=== PATIENT | male | born 1940 | race Caucasian/White ===

== ENCOUNTER 2020-03-10 21:18 | Inpatient (IN) | payer OTHER, MEDICARE ==
[~2020-03-10] VITALS: Ht 175.3 cm; Wt 85.0 kg
[2020-03-10 21:58] LABS: BASOPHILS ABSOLUTE AUTO 0.04 K/mm3 (0.00-0.23); BASOPHILS PERCENT AUTO 0 % (0-2); EOSINOPHILS ABSOLUTE AUTO 0.02 K/mm3 (0.00-0.68); EOSINOPHILS PERCENT AUTO 0 % (0-6); Hematocrit 42.9 % (37.0-53.0); Hemoglobin 13.8 g/dL (13.5-17.5); IMMATURE GRAN ABSOLUTE AUTO 0.05 K/mm3 (0.00-0.10); IMMATURE GRAN PERCENT AUTO 0 % (0-1); LYMPHOCYTES ABSOLUTE AUTO 0.48 K/mm3 (0.84-5.20); LYMPHOCYTES PERCENT AUTO 4 % (21-46); MONOCYTES PERCENT AUTO 4 % (4-13); Mean Corpuscular HGB 28.9 pg (26.0-34.0); Mean Corpuscular HGB Conc 32.2 g/dL (31.5-36.5); Mean Corpuscular Volume 90 fL (80-100); NEUTROPHILS ABSOLUTE AUTO 10.32 K/mm3 (1.96-9.15); NEUTROPHILS PERCENT AUTO 91 % (41-73); Platelet Count 220 K/mm3 (150-400); RDW Coefficient Variation 12.6 % (11.7-14.2); RDW Standard Deviation 41.4 fL (35.1-46.3); Red Blood Cell Count 4.77 M/mm3 (4.30-5.90); White Blood Cell Count 11.31 K/mm3 (4.00-11.30)
[2020-03-10] MEDS ORDERED: METF500 PO (22:04)
[2020-03-10 22:05] LABS: Alanine Aminotransfer (ALT/SGP 26 U/L (12-78); Albumin, Blood 3.2 g/dL (3.4-5.0); Albumin/Globulin Ratio 0.8 (0.8-1.8); Alk Phos 56 U/L (50-136); Anion Gap 5 mmol/L (6-16); Aspartate Aminotrans (AST/SGOT 27 U/L (12-37); Bilirubin, Total 0.3 mg/dL (0.1-1.0); Blood Urea Nitrogen 24 mg/dL (8-24); CO2, Blood 30 mmol/L (21-32); Calcium, Blood 8.6 mg/dL (8.5-10.1); Chloride, Blood 105 mmol/L (98-108); Globulin, Blood 3.8 g/dL (2.2-4.0); Glomerular Filtration Rate >60 (60-); Glucose, Blood 269 mg/dL (70-99); Potassium, Blood 3.9 mmol/L (3.5-5.5); Sodium, Blood 140 mmol/L (136-145); Troponin I 0.199 ng/mL (0.000-0.040)
[2020-03-10 23:06] LABS: Influenza A, PCR Negative (NEGATIVE); Influenza B, PCR Negative (NEGATIVE); Resp Syncytial Virus, PCR Negative (NEGATIVE); SARS-Cov-2 (COVID-19) PCR, MMC Negative (NEGATIVE)
--- NOTE | 2020-03-10 23:41 | NUR ---
PATIENT ARRIVED TO ICU 3 VIA BED FROM ASSOCIATE CURATOR POST PCI FOR STEMI. PATIENT AWAKE, MASHPEE. UP TO TOILET WITH 1 PERSON ASSIST CHRISTOPHER WELL. SCROTUM VERY SWOLLEN PATIENT VERBALIZED THAT HE HAS A HERNIA THAT WAS PARTIALLY REPAIRED. VOIDING SMALL AMT OF HAZY URINE WHEN UP TO TOILET. TR BAND IN PLACE TO RIGHT WRIST. STENT CARD PLACED IN PATIENTS WALLET. PATIENT ABLE TO ANSWER ADMIT QUESTIONS WITHOUT DIFFICULTY.
--- NOTE | 2020-03-11 03:38 | NUR ---
PATIENT UP TO TOILET AT 0240 VOIDING SMALL AMT OF HAZY YELLOW URINE. ON WAY BACK TO BED BECOMING SOB WITH AUDIBLE WHEEZES. AFTER RESTING CONTINUES TO FEEL SOB AND BECOMING VERY RESTLESS. FEELING IF HE NEEDS TO VOID AGAIN. COOK CATH PLACED DRAINING CLOUDY YELLOW URINE, EXPIRATORY WHEEZES CONTINUE.
[2020-03-11 03:39] LABS: Source, Urine Catheter
[2020-03-11 03:48] LABS: Bilirubin, Urine Neg (Neg); Blood, Urine 3+ (Neg); Glucose Qualitative, Urine 4+ (Neg); Ketones, Urine 2+ (Neg); Leukocyte Esterase, Urine Neg (Neg); Nitrite, Urine Neg (Neg); Protein, Urine 3+ (Neg); Urobilinogen, Urine 1+ (Normal)
[2020-03-11 03:49] LABS: Appearance, Urine Clear (Clear); Color, Urine Yellow (P-Yellow)
[2020-03-11 03:50] LABS: Bacteria Few /hpf; Squamous Epithelial Cells Not Seen /hpf (Few); White Blood Cells, Urine 0-2 /hpf (0-5)
--- NOTE | 2020-03-11 04:02 | NUR ---
CALL PLACED TO DOCTOR ATHAR PATIENT CONTINUES TO FEEL SOB, SKIN COLD AND DIAPHORETIC. REPEAT EKG DONE AND COPY SENT WITH PREVIOUS EKG
[2020-03-11 04:46] LABS: BASOPHILS ABSOLUTE AUTO 0.06 K/mm3 (0.00-0.23); BASOPHILS PERCENT AUTO 0 % (0-2); EOSINOPHILS ABSOLUTE AUTO 0.03 K/mm3 (0.00-0.68); EOSINOPHILS PERCENT AUTO 0 % (0-6); Hematocrit 47.4 % (37.0-53.0); Hemoglobin 15.1 g/dL (13.5-17.5); IMMATURE GRAN ABSOLUTE AUTO 0.16 K/mm3 (0.00-0.10); IMMATURE GRAN PERCENT AUTO 1 % (0-1); LYMPHOCYTES ABSOLUTE AUTO 2.48 K/mm3 (0.84-5.20); LYMPHOCYTES PERCENT AUTO 14 % (21-46); MONOCYTES ABSOLUTE AUTO 0.96 K/mm3 (0.16-1.47); MONOCYTES PERCENT AUTO 6 % (4-13); Mean Corpuscular HGB 29.3 pg (26.0-34.0); Mean Corpuscular HGB Conc 31.9 g/dL (31.5-36.5); Mean Corpuscular Volume 92 fL (80-100); Mean Platelet Volume 9.2 fL (9.1-12.4); NEUTROPHILS ABSOLUTE AUTO 13.55 K/mm3 (1.96-9.15); NEUTROPHILS PERCENT AUTO 79 % (41-73); Platelet Count 289 K/mm3 (150-400); RDW Coefficient Variation 12.6 % (11.7-14.2); RDW Standard Deviation 42.4 fL (35.1-46.3); Red Blood Cell Count 5.16 M/mm3 (4.30-5.90); White Blood Cell Count 17.24 K/mm3 (4.00-11.30)
[2020-03-11 04:51] LABS: PCO2 Arterial 59.5 mmHg (35-45); PO2 Arterial 114 mmHg (80-100)
[2020-03-11 04:53] LABS: pH Blood Arterial 7.21 (7.35-7.45)
[2020-03-11 04:57] LABS: Anion Gap 9 mmol/L (6-16); Blood Urea Nitrogen 22 mg/dL (8-24); Bun/Creatinine Ratio 38.6 (12.0-20.0); CO2, Blood 25 mmol/L (21-32); Calcium, Blood 8.3 mg/dL (8.5-10.1); Chloride, Blood 105 mmol/L (98-108); Creatinine, Blood 0.57 mg/dL (0.60-1.20); Glomerular Filtration Rate >60 (60-); Glucose, Blood 414 mg/dL (70-99); Magnesium, Blood 2.4 mg/dL (1.6-2.4); Phosphorus, Blood 3.9 mg/dL (2.5-4.9); Potassium, Blood 3.6 mmol/L (3.5-5.5); Sodium, Blood 139 mmol/L (136-145)
[2020-03-11 05:02] LABS: International Normalized Ratio 1.02; Prothrombin Time Results 10.9 Sec (9.7-11.5)
--- NOTE | 2020-03-11 06:34 | NUR ---
SUMMARY AT 0240 PATIENT UP TO TOILET TO VOID, WHEN AMB BACK TO BED BECOMING SOB WITH WHEEZES. COOK CATH PLACED, TO HELP DRAIN URINE DUE TO SWELLING TO SCROTUM AND PASSABLE URINE RETENTION. PATIENT CONTINUED TO BE SOB AND BECOMING RESTLESS, HILLMAN IN COLOR AND DIAPHORETIC . AT 0418 BECOMING LETHARGIC WITH AGONAL BREATHING CODE BLUE CALLED AND PATIENT INTUBATED WITH NO LOSS OF PRESSURE OR NEED FOR COMPRESSIONS. PROPOFOL STARTED FOR SEDATION AND PATIENT WENT TO CT. TR BAND REMAINS TO RIGHT WRIST ABLE TO DECREASE PRESSURE DOWN BY 8 CC. PATIENT NOW OPENS EYES TO SLIGHT STIMULI, NODDING YES AND NO TO SIMPLE QUESTIONS. VENT AC 18, TV 550, PEEP 8, FIO2 65%. LUNG SOUNDS COARSE TO RIGHT UPPER LOBE AND VERY DECREASED TO RIGHT MID TO LOWER LOBE, CLEAR TO LEFT UPPER FINE CRACKLES TO LEFT LOWER LOBE.
--- NOTE | 2020-03-11 08:38 | NUR ---
Contact established with patient's step-brother Shubham Dina to confirm the patient's medical wishes. Shubham verifies that the patient would not want non-beneficial heroic measures or manager intermediate life support therapies if they would be clinically futile. Faxed [place] to request the patient's advance directive to assure this testimony aligns with any documented preferences that may be on file.
--- NOTE | 2020-03-11 08:46 | NUR ---
PT WAS NOTED TO HAVE SBP 50'S AT 0745. PROPOFOL DOWN TO 15MCG/KG/MIN, CALL TO DR. CISNEROS, ORDERS FOR BOLUS NS 1000CC, PICC LINE. CT RESULTS TO MD @0751. 0800 DR. SILVESTRE CALLED 0801 NS BOLUS STARTED, IV INFILTRATED, ECHO DONE, I/O ACCESS AT 0816, RESUMED NS BOLUS. DR. CISNEROS WAS CALLED FOR PRESSORS, LEVO @ 20MCG/MIN @0825, PROPOFOL TO 15MCG/KG/MIN. PT WAS RESPONDING DURING THIS, WITH HEAD NODS, TUGGING AT RESTRAINTS, MOVING ALL EXTREM SPONTANEOUSLY. SBP STILL TRENDING LOW, INCREASED LEVOPHED TO 30, REQUESTED VASOPRESSIN. CHHAYA NOTED @0831, ATROPINE 0.5MG GIVEN. CONTACTED PASTORAL CARE TO ASSIST WITH CONTACT OF FAMILY AND ADVANCED DIRECTIVES RE[facility] FROM [facility]. 0835 VASO DECREASED, LEVO @ 20. 0842, CRITICAL LAB lACTIC ACID 3.1, SLIGHTLY IMPROVED. 0843 LEVO TO 15, 0845 LEVO TO 10, DR. CISNEROS HERE AT BEDSIDE, REPORT GIVEN. ORDER FOR DOBUTAMINE RECEIVED TO START AT 2.5 MCG/KG/MIN.
--- NOTE | 2020-03-11 09:08 | NUR ---
DR. SILVESTRE HERE, CENTRAL LINE TO BE PLACED.
--- NOTE | 2020-03-11 09:16 | NUR ---
I/O INSERTED FOR VASCULAR ACCESS BY HARLAN JASONRN
--- NOTE | 2020-03-11 09:26 | NUR ---
Stat echocardiogram performed by Leslee Arredondo under my supervision using 0.50ml of Definity contrast. Dr. Yepez reviewed the study and Dr. Boucher will read later.
[2020-03-11 10:24] LABS: PCO2 Arterial 33.2 mmHg (35-45); PO2 Arterial 163 mmHg (80-100); pH Blood Arterial 7.46 (7.35-7.45)
--- NOTE | 2020-03-11 12:00 | NUR ---
DONITA IS QUIETLY RESTING ON THE VENTILATOR, SETTINGS 18/550/8/50%. HE IS TOLERATING THE DROP IN FIO2 WELL, SATS REMAIN >95%. HE IS TOLERATING THE PRESSORS WELL, DOBUTAMINE 2.5 MCG/KG/MIN, VASOPRESSIN @ 0.04U/MIN, LEVOPHED @ 4 MCG/MIN, PROPOFOL REMAINS AT 60MCG/KG/MIN. SBP REMAINS >90 WITH A MAP >70. REMAINS TRYING TO OPEN EYES AT VERBAL STIMULUS. WITHDRAWS WITH PAIN. GOOD URINE OUTPUT, DR. CISNEROS IN TO PEEK AT PATIENT. NO NEW ORDERS.
--- NOTE | 2020-03-11 13:00 | NUR ---
TUBE FEEDING STARTED PER MARKING STITCHER RECOMMENDATION, VITAL HP AT 20ML/HR WITH 30ML FLUSH Q 4 HOURS.
[2020-03-11 13:40] LABS: Calcium, Ionized (POC) 1.14 mmol/L (1.10-1.46); Chloride (POC) 100 mmol/L (98-108); Creatinine (POC) 0.6 mg/dL (0.8-1.3); Glucose (ISTAT POC) 269 mg/dL (70-99); Potassium (POC) 3.9 mmol/L (3.5-5.5); Sodium (POC) 138 mmol/L (135-148); Total CO2 (POC) 30 mmol/L (21-32)
--- NOTE | 2020-03-11 16:33 | NUR ---
PT GIVEN SEDATION VACATION AT 1600, PT UNABLE TO FOLLOW COMMANDS, TRYING TO SIT UP, MOVED LEGS TO EDGE OF BED, PULLING AT TUBES, PROPOFOL PUT BACK ON AT 50MCG/KG/MIN FOR 5 MINUTES, RETURNED TO 30MCG/KG/MIN. VENT AT 18,550/5/50%. PT TOLERATING WELL WITH SEDATION.
--- NOTE | 2020-03-11 17:48 | NUR ---
DONITA HAS HAD AN EVENTFUL DAY. THIS MORNING BROUGHT SBP'S IN THE 50'S CAUSING A FLUID BOLUS, WITH 3 IV INFILTRATIONS AND A CENTRAL LINE PLACEMENT. VENT SETTINGS WERE STABLE T/O. PT ON A PROPOFOL GTT, CURRENTLY AT 30MCG/KG/MIN, HAD BEEN UP HIGH 50MCG/KG/MIN. STARTED ON LEVOPHED, CURRENTLY AT 6MCG/MIN, STARTED ON VASOPRESSIN @ 0.04U/MIN CONTINUOUS, ALSO STARTED ON DOBUTAMINE @ 2.5MCG/KG/MIN. HE HAS TOLERATED THIS MOST OF THE DAY, THE LEVOPHED HAS BEEN TITRATED TO KEEP HIS MAP >60. HE WAS ABLE TO MOVE TO 5 ON HIS PEEP AND 50% FIO2. HE WAS FOLLOWING COMMANDS AND SEEMED TO UNDERSTAND WHAT WAS HAPPENING FOR THE MOST PART THIS MORNING. DURING THE SEDATION VACATION, HE SEEMED AGITATED, PULLING AT TUBES, TRYING TO SIT UP AND DID NOT FOLLOW ANY COMMANDS. HIS SISTER RHONDA, DID COME IN TO SEE HIM. HE SLEPT THROUGH HER VISIT. AT THIS TIME, DONITA IS 100%, HR 67, BP 110/69, RESPS 18. LEVO @6,VASO @0.04, DOBUTAMINE @2.5, PROPOFOL @30.
--- NOTE | 2020-03-11 20:00 | NUR ---
ASSUMED PT CARE @ 1900: PT INTUBATED & SEDATED. VENT: AC 18/550 5/45%. DOBUTAMINE GTT @ 2.5mcg/kg/min, VASOPRESSIN GTT @ 0.04u/min, LEVOPHED GTT @ 6mcg/min, PROPOFOL GTT @ 30mcg/kg/min. UNABLE TO FOLLOW COMMANDS. WITHDRAWS SLIGHTLY, +GAG, +SWALLOW W/ ORAL CARE. SHIFTS LEGS W/ REPOSITIONING. HOWEVER NO PURPOSEFUL MOVEMENT NOTED. SINUS RHYTHM ON MONITOR, HR 70s. PT MILDLY HYPOTENSIVE W/ SBP LOW 100s-80s, HWOEVER MAP >65. WILL TITRATE MEDS ACCORDINGLY. SIGNIFICANT SWELLING & REDNESS TO SCROTUM, PER PREVIOUS RN REPORT PT STATED THIS IS NOT NEW & AT BASELINE. SLING APPLIED FOR COMFORT & ELEVATED. WILL CONTINUE TO MONITOR & REPORT APPROPRIATE.
[2020-03-12 04:29] LABS: BASOPHILS ABSOLUTE AUTO 0.03 K/mm3 (0.00-0.23); BASOPHILS PERCENT AUTO 0 % (0-2); EOSINOPHILS ABSOLUTE AUTO 0.01 K/mm3 (0.00-0.68); EOSINOPHILS PERCENT AUTO 0 % (0-6); Hemoglobin 12.3 g/dL (13.5-17.5); IMMATURE GRAN ABSOLUTE AUTO 0.05 K/mm3 (0.00-0.10); IMMATURE GRAN PERCENT AUTO 0 % (0-1); LYMPHOCYTES PERCENT AUTO 9 % (21-46); MONOCYTES ABSOLUTE AUTO 0.88 K/mm3 (0.16-1.47); MONOCYTES PERCENT AUTO 8 % (4-13); Mean Corpuscular HGB 28.7 pg (26.0-34.0); Mean Corpuscular HGB Conc 33.2 g/dL (31.5-36.5); Mean Platelet Volume 9.2 fL (9.1-12.4); NEUTROPHILS ABSOLUTE AUTO 9.21 K/mm3 (1.96-9.15); NEUTROPHILS PERCENT AUTO 82 % (41-73); Platelet Count 237 K/mm3 (150-400); RDW Coefficient Variation 12.9 % (11.7-14.2); RDW Standard Deviation 39.9 fL (35.1-46.3); Red Blood Cell Count 4.28 M/mm3 (4.30-5.90); White Blood Cell Count 11.18 K/mm3 (4.00-11.30)
[2020-03-12 04:33] LABS: Mean Corpuscular Volume 86 fL (80-100)
[2020-03-12 04:59] LABS: Alanine Aminotransfer (ALT/SGP 20 U/L (12-78); Albumin, Blood 2.5 g/dL (3.4-5.0); Albumin/Globulin Ratio 0.8 (0.8-1.8); Alk Phos 45 U/L (50-136); Anion Gap 8 mmol/L (6-16); Aspartate Aminotrans (AST/SGOT 32 U/L (12-37); Bilirubin, Total 0.6 mg/dL (0.1-1.0); Blood Urea Nitrogen 28 mg/dL (8-24); Bun/Creatinine Ratio 45.8 (12.0-20.0); CO2, Blood 27 mmol/L (21-32); Chloride, Blood 106 mmol/L (98-108); Creatinine, Blood 0.61 mg/dL (0.60-1.20); Globulin, Blood 3.2 g/dL (2.2-4.0); Glomerular Filtration Rate >60 (60-); Glucose, Blood 238 mg/dL (70-99); Magnesium, Blood 2.1 mg/dL (1.6-2.4); Phosphorus, Blood 1.7 mg/dL (2.5-4.9); Potassium, Blood 2.9 mmol/L (3.5-5.5); Sodium, Blood 141 mmol/L (136-145); Total Protein, Blood 5.7 g/dL (6.4-8.2)
[2020-03-12 05:35] LABS: PCO2 Arterial 30.5 mmHg (35-45); PO2 Arterial 68.5 mmHg (80-100); pH Blood Arterial 7.54 (7.35-7.45)
--- NOTE | 2020-03-12 06:23 | NUR ---
SHIFT SUMMARY: PT REMAINS INTUBATED, SEDATED. VENT: AC 14/550, 5/30%. PROPOFOL GTT @ 30mcg/kg/min, LEVOPHED GTT 6mcg/min, VASOPRESSIN GTT @ 0.04u/min. DOBUTAMINE GTT @ 2.5mcg/kg/min. PT CHANGE IN MENTATION WHILE SEDATED. HOWEVER, DURING SEDATION VACATION PT MAEW, ABLE TO SQUEEZE HANDS, NOD YES/NO. +1 MEDIUM WATERY BM THIS SHIFT. 1,425ml ARIES URINE OUTPUT. PER TIMOTHY PT WILL NOT BE WEANED TODAY. WILL CONTINUE TO MONITOR UNTIL REPORT OFF TO ONCOMING RN.
--- NOTE | 2020-03-12 07:30 | NUR ---
PT RECEIVED FROM SHENA GARDNER. PT ON VENT AC 14/550//5/30%, TOLERATING WELL. DRIPS: DOBUTAMINE @ 2.5MCG/KG/MIN; VASOPRESSIN @0.04U/MIN; NOREPI @5 MCG/MIN; PROPOFOL @30MCG/KG. MAINTENANCE IV FLUIDS @ 75, TUBE FEEDING AT 20 ML/HR. PT MOVING ALL EXTEMITIES, OPENS MOUTH FOR ORAL CARE, CONTINUES WITH PITTING EDEMA IN THE BLE, HYPO BOWEL SOUNDS AND CLEAR LUNGS.
--- NOTE | 2020-03-12 10:00 | NUR ---
DR. SILVESTRE SEEING PT, WILL CONTINUE TO HOLD LASIX UNTIL THE K PHOS AND K CHL ARE IN. WILL STOP MAINTENANCE FLUIDS. PT ASSISTING WITH POSITIONING, BY HELPING LIFT LEGS ON PILLOWS, HOLDING HANDS, NODDING.
--- NOTE | 2020-03-12 11:39 | NUR ---
PT BECOMING MORE AGITATED, INCREASING PROPOFOL. PT MOVING ALL OVER BED, PULLING AT RESTRAINTS, PULLING PILLOWS OUT, MOVING LEGS. TRYING TO COMMUNICATE WITH HIM. WILL OBSERVE.
--- NOTE | 2020-03-12 14:59 | NUR ---
PT TURNED AND CLEANED UP FROM SMALL BM. BLOOD PRESSURE SYSTOLIC IN THE 70'S, MAP <60, TITRATED THE PROPOFOL DOWN AND THE LEVOPHED UP. BP STABLIZED AT 97/58 FOR NOW.
--- NOTE | 2020-03-12 16:42 | NUR ---
RESTARTING THE VASOPRESSIN HIS SBP IS DIPPING INTO THE 70'S WITH A MAP OF 57. LEVO IS AT 5. PROPOFOL IS AT 40.
[2020-03-12 17:13] LABS: Phosphorus, Blood 1.8 mg/dL (2.5-4.9); Potassium, Blood 2.4 mmol/L (3.5-5.5)
--- NOTE | 2020-03-12 18:46 | NUR ---
DONITA HAS DONE WELL TODAY, HE IS CURRENTLY ON THE VENTILATOR AC 14/550/5/30%. HE HAS HAD SATS >95% ALL DAY. HE HAS BEEN ON THE DOBUTAMINE @2.5MCG/KG/MIN ALL SHIFT, LEVOPHED HAS BEEN BETWEEN 3-6 MCG/MIN, PROPOFOL HAS BEEN 30-50MCG/KG/MIN. HE HAD A TIME AROUND 1145 WHERE HE WAS PRETTY AGITATED, PULLING AT RESTRAINTS, PILLOWS, TRYING TO SIT UP, WHERE THE PROPOFOL WAS INCREASED TO 50 FOR HIS SAFETY. HE HAS HAD THE VASOPRESSIN ON STANDBY FOR A COUPLE OF HOURS THE LAST PART OF THE SHIFT, TITRATING FOR SBP <80. HIS TUBE FEEDINGS HAVE GONE WELL, INCREASED FROM 20ML/HR TO 30ML/HR, WITH RESIDUALS OF <10. HE HAD A SMALL BM, SCROTUM CONTINUES TO BE ENLARGED AND CLEANED FREQUENTLY IN REGARDS TO URINE LEAKING AROUND URETHRA. HIS URINE OUTPUT WAS NOT HUGE TODAY, <900. HIS ANKLE EDEMA IS IMPROVING. HE HAS BEEN IN SINUS RHYTHM WITH OCC. PAC'S AND PVC'S.
--- NOTE | 2020-03-12 19:15 | NUR ---
ASSUMING PT CARE: PT INTUBATED, SEDATED. VENT: 14/550, 5/30%. PROPOFOL GTT @ 40mcg/kg/min, LEVOPHED GTT @ 5mcg/min, DOBUTAMINE GTT @ 2.5mcg/kg/min. PT DOES NOT AWAKE TO NOXIOUS STIMULI OR FOLLOW COMMANDS. PULLS AT RESTRAINTS & TURNS HEAD WHEN AGITATED. MONITOR INDICATES A SINUS RHYTHM IN THE 70s, SBP HIGH 90s TO LOW 100s. VASO IS OFF. WILL CONTINUE TO MONITOR CLOSELY & TITRATE GTTs FOR MAP >65.
[2020-03-13 05:30] LABS: Base Excess Venous 3.3 mmol/L; Bicarbonate Venous 26.9 mmol/L (24.0-30.0); PO2 Venous 45.2 mmHg (38-42); pH Blood Venous 7.45 (7.34-7.37)
[2020-03-13 05:31] LABS: BASOPHILS ABSOLUTE AUTO 0.03 K/mm3 (0.00-0.23); BASOPHILS PERCENT AUTO 0 % (0-2); EOSINOPHILS ABSOLUTE AUTO 0.04 K/mm3 (0.00-0.68); EOSINOPHILS PERCENT AUTO 0 % (0-6); Hematocrit 35.7 % (37.0-53.0); Hemoglobin 11.5 g/dL (13.5-17.5); IMMATURE GRAN ABSOLUTE AUTO 0.04 K/mm3 (0.00-0.10); IMMATURE GRAN PERCENT AUTO 0 % (0-1); LYMPHOCYTES ABSOLUTE AUTO 0.72 K/mm3 (0.84-5.20); LYMPHOCYTES PERCENT AUTO 8 % (21-46); MONOCYTES ABSOLUTE AUTO 0.74 K/mm3 (0.16-1.47); MONOCYTES PERCENT AUTO 8 % (4-13); Mean Corpuscular HGB 28.8 pg (26.0-34.0); Mean Corpuscular HGB Conc 32.2 g/dL (31.5-36.5); Mean Corpuscular Volume 89 fL (80-100); Mean Platelet Volume 9.2 fL (9.1-12.4); NEUTROPHILS ABSOLUTE AUTO 8.04 K/mm3 (1.96-9.15); NEUTROPHILS PERCENT AUTO 84 % (41-73); Platelet Count 205 K/mm3 (150-400); RDW Coefficient Variation 13.2 % (11.7-14.2); RDW Standard Deviation 43.5 fL (35.1-46.3); White Blood Cell Count 9.61 K/mm3 (4.00-11.30)
[2020-03-13 05:50] LABS: Anion Gap 5 mmol/L (6-16); Blood Urea Nitrogen 25 mg/dL (8-24); Bun/Creatinine Ratio 40.9 (12.0-20.0); CO2, Blood 28 mmol/L (21-32); Calcium, Blood 8.1 mg/dL (8.5-10.1); Chloride, Blood 110 mmol/L (98-108); Creatinine, Blood 0.61 mg/dL (0.60-1.20); Glomerular Filtration Rate >60 (60-); Glucose, Blood 149 mg/dL (70-99); Magnesium, Blood 2.3 mg/dL (1.6-2.4); Phosphorus, Blood 2.4 mg/dL (2.5-4.9); Potassium, Blood 3.8 mmol/L (3.5-5.5); Sodium, Blood 143 mmol/L (136-145)
--- NOTE | 2020-03-13 06:29 | NUR ---
SHIFT SUMMARY: PT REMAINS INTUBATED, SEDATED. VENT: AC 14/550, 5/30%. PROPOFOL GTT @ 20mcg/kg/min, DOBUTAMINE GTT @ 2.5mcg/kg/min. PT GIVEN SBT THIS AM x30MIN W/ PROPOFOL DC TO 15mcg/kg/min. PT TOOK MUCH LONGER TO AROUSE THAN PREVIOUS SEDATION VACATIONS BUT WAS ABLE TO SQUEEZE HANDS & FOLLOW COMMANDS TO TAKE IN DEEP BREATHS & SLOW RR. K+SUCCESSFULLY REPLACED THIS SHIFT, NOW 3.9. VASOPRESSIN GTT ON STANDBY FOR THE SHIFT'S ENTIRETY W/ LEVOPHED GTT ON STANDBY SINCE 539. MAP STABLE. 1600ml LIGHT YELLOW URINE OUTPUT. NO OTHER ACUTE CHANGES TO REPORT. WILL CONTINUE TO MONITOR UNTIL REPORT OFF TO ONCOMING RN.
--- NOTE | 2020-03-13 08:00 | NUR ---
PT REMAINS INTUBATED, SEDATED, AND RESTRAINED. TOLERATED SEDATION VACATION AND WEANING TRIAL WELL THIS AM. PT OPENS EYES TO VOICE AND NODS "NO" WHEN ASKED IF IN ANY PAIN. ECG SHOWS SR WITH OCCASIONAL PAC'S. MAP TRENDING 70'S. DOBUTREX CONTINUES @ 2.5 MCG. LUNGS WITH FEW FINE CRACKLES TO BASES. SATS>90% ON AC 14, TV550, PEEP 5, AND FIO2 30%. ETT AND ORAL SUCTION PRODUCTIVE OF A SMALL AMOUNT OF THICK, [place] SECRETIONS. CONTINUES TO TOLERATE OGTF WELL. 5 CC RESIDUAL REFED. PT PASSING FLATUS, BUT NO STOOL YET THIS AM. TESTICULAR HERNIA CONTIUES. COOK APPEARS TO BE LEAKING SLIGHTLY, BUT DIFFICULT TO TELL THE PENIS/MEATUS IS NOT VISUALIZED AT THIS TIME. COOK WITH MODERATE AMOUNT OF CLEAR, YELLOW URINE TO UROMETER. ANTICIPATE ADDITIONAL WEANING TRIAL LATER THIS AM WHEN DR. DUMONT AT BEDSIDE AND POSSIBLE EXTUBATION DEPENDENT ON HOW PT TOLERATES.
--- NOTE | 2020-03-13 09:31 | NUR ---
DR. DUMONT IN TO SEE PT. PROPOFOL ON STANDBY FOR WEANING TRIAL.
--- NOTE | 2020-03-13 10:00 | NUR ---
WEANING TRIAL TERMINATED PT TV 200'S AND RR30'S. RESUMED PROPOFOL DRIP @ 30 MCG/KG/MIN AND RETURNED VENT TO PREVIOUS SETTINGS ON AC MODE. PT NODDED "YES" TO UNDERSTANDING THAT WE WOULD ATTEMPT ANOTHER WEANING TRIAL IN THE AM. PT AGITATED AND PULLING ON RESTRAINTS. PT GRIMACING AND MOVING HIS LEGS ABOUT THE BED. MED WITH ATIVAN 1 MG IVP X1 AND FENTANYL 50MCG IVP X 1 AND REPOSITIONED PT TO COMFORT ON RIGHT SIDE.
--- NOTE | 2020-03-13 16:00 | NUR ---
PT REMAINS INTUBATED, SEDATED, AND RESTRAINED. RESTING QUIETLY ON VENT WITH PROPOFOL @ 30 MCG/KG/MIN. LUNGS DIMINISHED IN THE BASES L>R. MAINTAINS SATS>90% ON FIO2 30%-NO VENT CHANGES. MAP TRENDING 70'S DOBUTREX @ 2.5 MCG/KG/MIN. TOLERATING OGTF @ GOAL 30 CC/HR WITH MINIMAL RESIDUAL. CONTINUES TO PUT OUT ADEQUATE AMOUNT OF CLEAR, YELLOW URINE. POTASSIUM PHOS 10 MMOL REPLACEMENT INFUSING.
--- NOTE | 2020-03-13 19:00 | NUR ---
ASSUMED CARE NOTE: ASSUMED CARE OF PT AT 1900, RECEVIED REPORT FROM AMRIK CHATTERJEE. PT IS INTUBATED AND SEDATED WITH PROPOFOL AT 30MCG/KG/MIN. PT OPENS EYES AND GRIMICES WITH PAINFUL STIMULI. VENT SETTINGS AC14/550/5/25% SPO2 ABOVE 90% PT IN SINUS RHYTHM WITH HR IN THE 70'S-80'S. TUBE FEEDS RUNNING AT GOAL VIA OGT. HYPOACTIVE BOWEL TONES HEARD IN ALL QUADRANTS. RECTAL TEMP PROBE PLACED. TEMPORAL TEMP READING 101.0. WILL CONTINUE TO MONITOR PT T/O SHIFT. BED AT LOWEST LEVEL.
[2020-03-14 03:59] LABS: BASOPHILS ABSOLUTE AUTO 0.02 K/mm3 (0.00-0.23); BASOPHILS PERCENT AUTO 0 % (0-2); EOSINOPHILS ABSOLUTE AUTO 0.09 K/mm3 (0.00-0.68); EOSINOPHILS PERCENT AUTO 1 % (0-6); Hematocrit 32.7 % (37.0-53.0); Hemoglobin 10.5 g/dL (13.5-17.5); IMMATURE GRAN ABSOLUTE AUTO 0.04 K/mm3 (0.00-0.10); IMMATURE GRAN PERCENT AUTO 1 % (0-1); LYMPHOCYTES ABSOLUTE AUTO 0.68 K/mm3 (0.84-5.20); LYMPHOCYTES PERCENT AUTO 8 % (21-46); MONOCYTES ABSOLUTE AUTO 0.61 K/mm3 (0.16-1.47); MONOCYTES PERCENT AUTO 7 % (4-13); Mean Corpuscular HGB 29.1 pg (26.0-34.0); Mean Corpuscular HGB Conc 32.1 g/dL (31.5-36.5); Mean Corpuscular Volume 91 fL (80-100); Mean Platelet Volume 8.9 fL (9.1-12.4); NEUTROPHILS ABSOLUTE AUTO 7.27 K/mm3 (1.96-9.15); NEUTROPHILS PERCENT AUTO 84 % (41-73); Platelet Count 180 K/mm3 (150-400); RDW Coefficient Variation 13.4 % (11.7-14.2); RDW Standard Deviation 44.8 fL (35.1-46.3); Red Blood Cell Count 3.61 M/mm3 (4.30-5.90); White Blood Cell Count 8.71 K/mm3 (4.00-11.30)
[2020-03-14 04:15] LABS: Albumin, Blood 2.3 g/dL (3.4-5.0); Anion Gap 5 mmol/L (6-16); Blood Urea Nitrogen 27 mg/dL (8-24); Bun/Creatinine Ratio 44.7 (12.0-20.0); CO2, Blood 29 mmol/L (21-32); Calcium, Blood 7.9 mg/dL (8.5-10.1); Chloride, Blood 110 mmol/L (98-108); Glomerular Filtration Rate >60 (60-); Glucose, Blood 160 mg/dL (70-99); Magnesium, Blood 2.3 mg/dL (1.6-2.4); Phosphorus, Blood 2.9 mg/dL (2.5-4.9); Potassium, Blood 3.7 mmol/L (3.5-5.5); Sodium, Blood 144 mmol/L (136-145)
--- NOTE | 2020-03-14 04:28 | NUR ---
SEDATION VACATION/VENT WEAN TRIAL PROPOFOL TURNED DOWN TO 20MCG/KG/MIN AT 0330, PT WAS ABLE TO OPEN EYES, FOLLOW COMMANDS, DROWSY. AT 0400 PROPOFOL WAS PLACED ON STAND-BY. AT 0410 PT WAS ABLE TO ANSWER YES/NO QUESTIONS USING HEAD GEASTURES. PT PLACED ON SPONTANEOUS VENT MODE PS 7, PEEP 5, FiO2 25% , SPO2 AT 97-98% PT PULLING TV OVER 300, RR MAINTAINING 18-22, BP STABLE. PT TOLERATING VENT W/O SEDATION AT THIS TIME. WILL LEAVE PT ON SPONTANEOUS MODE PER RT PROTOCOL. WILL CONTINUE TO MONITOR
--- NOTE | 2020-03-14 05:35 | NUR ---
SHIFT SUMMARY: PT PLACED BACK ON AC VENT MODE DUE TO PT BECOMING AGITATED AND RR IN THE 30-40'S. VENT SETTINGS AC14/550/5/25% PROPOFOL TURNED BACK TO 20MCG/KG/MIN. PT HAS BEEN HAVING SMALL AMOUNTS OF [place] THIN SECRETIONS VIA ETT. PT NODS "YES" TO PAIN, FENTANYL GIVEN PER EMAR, WITH GOOD EFFECT. PT IN NSR WITH HR IN THE 80'S. BP STABLE. DOBUTAMINE CONTINUES TO RUN 2.5MCG/KG/MIN. TUBE FEED CONTINUES TO RUN AT GOAL, RESIDUALS LESS THAN 5MLS. COOK PATENT, DRAINING TO GRAVITY, ARIES COLORED, SEDIMENT AND FOUL ODOR NOTED. PT HAD A SEDATION VACATION THIS SHIFT, SEE PREVIOUS NOTE. PT WAS ABLE TO MOVE ALL EXTREMITES DURING SEDATION VACATION. WILL CONTINUE TO MONITOR PT UNTIL REPORT IS GIVEN TO ONCOMING SHIFT.
--- NOTE | 2020-03-14 08:00 | NUR ---
ASSUMED CARE OF PT, REPORT RCV'D FROM SHENA STALLINGS. PT INTUBATED AND SEDATED. VENT SETTINGS AC 14/550/5/25%. AT START OF SHIFT PROPOFOL @ 20 MCG/KG/MIN, PT ALERT TO VERBAL STIMULI AND ABLE TO FOLLOW COMMANDS. PROPOFOL INCREASED TO 40 MCG/KG/MIN D/T PT'S DISCOMFORT. LUNG SOUNDS CLEAR WITH DIM BASES, SMALL AMOUNT OF THICK [place] SECRETIONS SUCTIONED FROM ETT. VITAL HIGH PROTEIN RUNNING AT GOAL RATE 30 ML/HR. COOK PATENT AND DRAINING CLOUDY ARIES URINE, SIGNIFICANT SCROTAL EDEMA. DOBUTAMINE @ 2.5 MCG/KG/MIN. SEE FULL SHIFT ASSESSMENT
--- NOTE | 2020-03-14 09:48 | NUR ---
PLAN TO EXTUBATE PT THIS MORNING. SPOKE WITH PT'S BROTHER (MADIE), UPDATED WITH PLAN FOR EXTUBATION, CONFIRMED PT'S DNR STATUS AND CONFIRMED THAT PT WOULD NOT WANT TO BE REINTUBATED.
--- NOTE | 2020-03-14 12:47 | NUR ---
PT EXTUBATED AND PLACED ON BIPAP, 40% FIO2 WITH SATS>90%. PT TOLERATING BIPAP WELL.
--- NOTE | 2020-03-14 14:31 | NUR ---
SHORTLY FOLLOWING EXTUBATION PT BEGAN EXPERIENCING DIFFICULTY BREATHING WITH STRIDOR. DR. DUMONT AT BEDSIDE. PT PLACED ON BIPAP AND GIVEN BREATHING TREATMENTS. PT BECAME HYPERTENSIVE AND TACHYCARDIC WITH HR: 130'S. PT GIVEN METOPROLOL IV AND DOBUTAMINE RESTARTED. WILL START NITRO GTT NEEDED TO CONTROL BP AND HR. PRECEDEX INFUSING TO ASSIST WITH BIPAP TOLERANCE, CURRENTLY AT 0.7 MCG/KG/HR. BIPAP SETTINGS 24/8 50% WITH SATS>90. DR. DUMONT SPOKE WITH PT'S FAMILY REGARDING PROGNOSIS. PT'S FAMILY DISCUSSED REASSESSING PT IN A "FEW HOURS" AND POSSIBLY TRANSITIONING PT TO COMFORT CARE. PT'S DAUGHTER CALLED AND WAS UPDATED WITH PT'S STATUS AND DAUGHTER STATES HER AGREEMENT TO TRANSITION FATHER TO COMFORT CARE APPROPRIATE.
--- NOTE | 2020-03-14 15:03 | NUR ---
PT'S BROTHER AND SISTER IN LAW AT BEDSIDE, UPDATED WITH PT'S STATUS. PT'S BROTHER SEEMS ADAMENT THAT THE "END IS NEAR" FOR HIS BROTHER AND THAT HE WAS JUST THERE TO "PAY HIS RESPECTS". PT'S BROTHER EXPECTS PT TO TRANSITION TO COMFORT CARE/HOSPICE THIS EVENING. PT REACTED TO HIS VISITORS BY LIFTING HIS HAND, ATTEMPTED TO WRITE USING CLIPBOARD BUT WAS ABLE TO ONLY SCRIBBLE.
--- NOTE | 2020-03-14 15:54 | NUR ---
MESSAGE LEFT FOR PALLIATIVE CARE, UPDATING ON PT'S STATUS AND POSSIBLE CHANGE TO COMFORT CARE.
--- NOTE | 2020-03-14 18:19 | NUR ---
SHIFT SUMMARY PT REMAINS ON BIPAP 27/10, 50% WITH SATS>90%. PT RELAXED AND TOLERATING BIPAP ON PRECEDEX 0.7 MCG/KG/HR. DOBUTAMINE PLACED ON STANDBY PER DR. DUMONT. FAMILY UPDATED ON PT CONDITION AND PLAN OF CARE. PLEASE SEE PREVIOUS NOTES FROM THIS SHIFT. WILL REPORT TO ONCOMING RN.
--- NOTE | 2020-03-14 19:00 | NUR ---
ASSUMED CARE NOTE: ASSUMED CARE OF PT AT 1900, RECEVIED REPORT FROM GEORGE CHATTERJEE. PT RESPONDS TO VERBAL STIMULI, IS ABLE TO OPEN EYES AND FOLLOW COMMANDS. CAN ANSWER YES/NO QUESTIONS USING HEAD GEASTURES. PT IS ON BIPAP WITH SETTINGS AT 24/8, FiO2 30% PT IS ON PRECEDEX AT 0.7MCG/KG/HR. PT IS IN SINUS CHHAYA 50-60'S. SOFT BP NOTED, MAP ABOVE 60'S, SBP 80-90'S. BOWEL TONES HEARD IN ALL QUADRANTS. COOK PATENT, DRAINING TO GRAVITY, YELLOW URINE WITH SEDIMENT NOTED. FOUL ODOR NOTED IN URINE. UNABLE TO GIVE ORAL MEDS DUE TO HIGH ASPIRATION RISK. ORAL CARE PROVIDED. PT TOLERATED 2MIN ORAL CARE. UPDATED SISTER ALAN, VIA PHONE. WILL CONTINUE TO MONITOR PT T/O SHIFT, BED AT LOWEST LEVEL
--- NOTE | 2020-03-14 22:24 | NUR ---
UPDATE: PRECEDEX TITRATED DOWN DUE TO LOWERING BP AND HR. SBP INCREASED TO 100 AFTER CHANGE
--- NOTE | 2020-03-14 23:56 | NUR ---
CALLED REGARDING LOWER SBP OF 70-80'S AND MAP BETWEEN 50-60'S. LOW URINE OUTPUT IN THE LAST COUPLE HOUR. ORDERS TO START LOW DOSE OF LEVOPHED ONLY IF MAP IS LESS THAN 60. AND DO NOT EXCEED LEVOPHED MORE THAN 5MCG/MIN.
[2020-03-15 03:36] LABS: BASOPHILS ABSOLUTE AUTO 0.03 K/mm3 (0.00-0.23); BASOPHILS PERCENT AUTO 0 % (0-2); EOSINOPHILS ABSOLUTE AUTO 0.07 K/mm3 (0.00-0.68); EOSINOPHILS PERCENT AUTO 1 % (0-6); Hematocrit 34.5 % (37.0-53.0); IMMATURE GRAN ABSOLUTE AUTO 0.05 K/mm3 (0.00-0.10); IMMATURE GRAN PERCENT AUTO 1 % (0-1); LYMPHOCYTES ABSOLUTE AUTO 0.57 K/mm3 (0.84-5.20); LYMPHOCYTES PERCENT AUTO 6 % (21-46); MONOCYTES PERCENT AUTO 8 % (4-13); Mean Corpuscular HGB Conc 31.9 g/dL (31.5-36.5); Mean Corpuscular Volume 91 fL (80-100); Mean Platelet Volume 8.9 fL (9.1-12.4); NEUTROPHILS ABSOLUTE AUTO 8.67 K/mm3 (1.96-9.15); NEUTROPHILS PERCENT AUTO 85 % (41-73); Platelet Count 201 K/mm3 (150-400); RDW Coefficient Variation 13.2 % (11.7-14.2); RDW Standard Deviation 44.1 fL (35.1-46.3); Red Blood Cell Count 3.79 M/mm3 (4.30-5.90); White Blood Cell Count 10.19 K/mm3 (4.00-11.30)
[2020-03-15 03:50] LABS: Albumin, Blood 2.3 g/dL (3.4-5.0); Anion Gap 5 mmol/L (6-16); Blood Urea Nitrogen 37 mg/dL (8-24); Bun/Creatinine Ratio 52.9 (12.0-20.0); CO2, Blood 29 mmol/L (21-32); Calcium, Blood 7.7 mg/dL (8.5-10.1); Chloride, Blood 111 mmol/L (98-108); Glomerular Filtration Rate >60 (60-); Glucose, Blood 143 mg/dL (70-99); Magnesium, Blood 2.4 mg/dL (1.6-2.4); Sodium, Blood 145 mmol/L (136-145)
--- NOTE | 2020-03-15 05:55 | NUR ---
SHIFT SUMMARY: NO SIGNIFICANT CHANGES. PT IS ALERT AND ORIENTED TO SELF, ABLE TO COMMUNICATE NEEDS WITH COMMUNICATION BOARD. PT ABLE TO FOLLOW COMMANDS. PT HAS DENIED SOB/PAIN T/O SHIFT. PT IS ON BIPAP WITH SETTINGS AT 22/8, FiO2 OF 25% PT HAVING WEAK NON-PRODUCTIVE COUGH. ORAL CARE GIVEN EVERY 4HRS. GEL PAD PLACED ON NOSE TO PREVENT SKIN BREAKDOWN FROM BIPAP. PT CONTINUES TO BE ON PRECEDEX FOR BIPAP COMFORT. PT HAS BEEN IN SINUS CHHAYA WITH HR BETWEEN 48-55. SOFT BP NOTED. SEE PREVIOUS NOTE REGARDING BP. LEVOPHED NOT STARTED PER TIM ORDER, MAP MAINTAIN ABOVE 60. PT HAD A BM THIS SHIFT. FOELY PATENT DRAINING TO GRAVITY, 600ML OUTPUT, ARIES IN COLOR SEDIMENT AND FOUL ODOR PRESENT. WILL CONTINUE TO MONITOR PT UNTIL REPORT IS GIVEN TO ONCOMING SHIFT.
--- NOTE | 2020-03-15 17:23 | NUR ---
SHIFT SUMMARY PT ALERT, ORIENTED AND COOPERATIVE WITH CARE. PT REMAINS ON BIPAP 16/8 25% WITH SATS IN THE UPPER 90'S. PT TOLERATES ORAL CARE WELL WITH MINIMAL CHANGE IN OXYGEN SATURATION. PT HAS STRONG COUGH AND WILL COUGH ON DEMAND. PT HAS NOT COMMUNICATED VERBALLY BUT IS ABLE TO APPROPRIATELY LET NEEDS BE KNOWN TO STAFF. VSS T/O SHIFT. PT TOLERATING PRECEDEX 0.2 MCG/KG/HR AND TOLERATING BIPAP. FAMILY UPDATED THROUGHOUT THE DAY. WILL REPORT TO ONCOMING NURSE.
--- NOTE | 2020-03-15 19:00 | NUR ---
ASSUMED CARE NOTE: ASSUMED CARE OF PT AT 1900, RECEVIED REPORT FROM GEORGE CHATTERJEE. PT IS ALERT AND ORIENTEDX3. PT IS ASKING APPROPRIATE QUESTIONS. ABLE TO RECALL REMOTE EVENTS. PT IS ABLE TO COMMUNICATE NEEDS, USES CALL LIGHT APPROPRIATLY. PT IS ON BIPAP WITH SETTINGS AT 16/8, FiO2 AT 25% PT IS HAVING PRODUCTIVE COUGH, WHITE THIN SECRETIONS. PT ON PRECEDEX FOR BIPAP TOLERANCE. GOAL FOR SHIFT IS TO WEAN PT OFF PRECEDEX AND GIVE PT BREAKS FROM BIPAP TOLERATED. PT IS IN SINUS RHYTHM TO SINUS CHHAYA HR BETWEEN 50-62. BOWEL TONES HEARD IN ALL QUADRANTS. COOK IS PATENT AND DRAINING TO GRAVITY, ARIES IN COLOR, SEDIMENT AND FOUL ODOR PRESENT. SCD'S ON. WILL CONTINUE TO MONTIOR PT T/O SHIFT.
--- NOTE | 2020-03-15 21:28 | NUR ---
PT PLACED ON 4L OF O2 VIA HUMITIFIED HIGH FLOW CANNULA. PT 02 STATURATIONS 96% NO RESPRIATORY DISTRESSED NOTED. RR AT 16. PT ADVISED TO CALL IF HE BEGINS TO FEEL SOB. WILL CONTINUE TO MONITOR.
--- NOTE | 2020-03-16 00:10 | NUR ---
UPDATE: PT HAS BEEN ON 4L OF 02 VIA HIGH FLOW NC. NO RESPRIATORY DISTRESS NOTED, PT STS HE IS NOT SOB OR HAVING DIFFICULTY BREATHING. RR BETWEEN 16-20. PT HAS BEEN USING ORAL SUCTION AT BEDSIDE. CONTINUES TO BE ALERT AND ORIENTED.
--- NOTE | 2020-03-16 02:55 | NUR ---
PT PLACED BACK ON BIPAP SETTINGS AT 16/8, FiO2 25% DUE TO PT RR INCREASING TO 30 BREATHS PER MINUTE. PT STS HE DOSENT FEEL SOB. PT CONTINUES TO BE ALERT AND ORIENTED.
[2020-03-16 05:07] LABS: BASOPHILS ABSOLUTE AUTO 0.05 K/mm3 (0.00-0.23); BASOPHILS PERCENT AUTO 0 % (0-2); EOSINOPHILS ABSOLUTE AUTO 0.13 K/mm3 (0.00-0.68); EOSINOPHILS PERCENT AUTO 1 % (0-6); Hematocrit 38.7 % (37.0-53.0); Hemoglobin 12.3 g/dL (13.5-17.5); IMMATURE GRAN ABSOLUTE AUTO 0.07 K/mm3 (0.00-0.10); IMMATURE GRAN PERCENT AUTO 1 % (0-1); LYMPHOCYTES ABSOLUTE AUTO 0.67 K/mm3 (0.84-5.20); LYMPHOCYTES PERCENT AUTO 6 % (21-46); MONOCYTES ABSOLUTE AUTO 0.92 K/mm3 (0.16-1.47); MONOCYTES PERCENT AUTO 8 % (4-13); Mean Corpuscular HGB 29.1 pg (26.0-34.0); Mean Corpuscular HGB Conc 31.8 g/dL (31.5-36.5); Mean Corpuscular Volume 92 fL (80-100); Mean Platelet Volume 8.9 fL (9.1-12.4); NEUTROPHILS ABSOLUTE AUTO 10.16 K/mm3 (1.96-9.15); NEUTROPHILS PERCENT AUTO 85 % (41-73); Platelet Count 238 K/mm3 (150-400); RDW Coefficient Variation 12.8 % (11.7-14.2); RDW Standard Deviation 42.6 fL (35.1-46.3); Red Blood Cell Count 4.23 M/mm3 (4.30-5.90)
[2020-03-16 05:28] LABS: Albumin, Blood 2.1 g/dL (3.4-5.0); Anion Gap 8 mmol/L (6-16); Blood Urea Nitrogen 38 mg/dL (8-24); Bun/Creatinine Ratio 65.5 (12.0-20.0); CO2, Blood 26 mmol/L (21-32); Calcium, Blood 7.1 mg/dL (8.5-10.1); Chloride, Blood 114 mmol/L (98-108); Creatinine, Blood 0.58 mg/dL (0.60-1.20); Glomerular Filtration Rate >60 (60-); Glucose, Blood 87 mg/dL (70-99); Magnesium, Blood 2.3 mg/dL (1.6-2.4); Phosphorus, Blood 2.6 mg/dL (2.5-4.9); Potassium, Blood 3.3 mmol/L (3.5-5.5); Sodium, Blood 148 mmol/L (136-145)
--- NOTE | 2020-03-16 05:33 | NUR ---
SHIFT SUMMARY : SEE PREVIOUS NOTES. PT IS ON 3L OF 02 VIA HIGH-FLOW NC WITH SPO2 ABOVE 90% PT IS PLACED BACK ON BIPAP WITH SETTINGS AT 16/8, FiO2 30% WHEN PT DESATURATES WITH ACTIVITY. PT IS ALERT AND ORIENTEDX3, ABLE TO MAKE COMMUNICATE NEEDS EFFECTIVLY. COUGH IS GETTING STRONGER PT IS USING HAND HELD YANKAUER SUCTION AT BEDSIDE, THIN WHITE SECRETIONS NOTED. PT IS IN NSR WITH HR IN THE 90'S. PT HAD THREE SOFT BM'S THIS SHIFT. COOK DRAINING TO GRAVITY, ARIES COLOR URINE, 900ML THIS SHIFT. PRECEDEX HAS BEEN OFF SINCE 2099. WILL CONTINUE TO MONITOR PT UNTIL REPORT IS GIVEN TO ONCOMING SHIFT.
--- NOTE | 2020-03-16 09:59 | NUR ---
SPOKE EARLIER WITH DR MOSHER, NEW MED ORDERS NOTED AND NPO STATUS SHARED AND PAST MEDS WERE NOT GIVEN DUE TO NPO STATUS. S.T. CALLED AND WILL ARRIVE TO EVALUATE FOR PO INTAKE. PT HAS GOOD COUGH BUT IS UNABLE TO FINISH BRINGING THE SECREATIONS UP AND SX ASSIST IS GIVEN WITH CLEARING OF THROAT AND VOICE. NEW S.T. ORDERS NOTED FOR DIET. PT IS C/O ABD PAIN W/O ANY SITE ISSUES IDENTIFIED, SHARED WITH DR HILLS AND WILL FOLLOW FOR NOW. PT IS PASSING FLATUS. FINE BB CRACKLES NOTED. PT CENTRAL LINE IS INTACT AND FLUSHES WILL WITH SAFE SET IN PLACE CURRENLTY.
--- NOTE | 2020-03-16 10:32 | NUR ---
Pt doing much better per RN. He was extubated yesterday. Family said their good-byes. Pt was made DNR per POA for healthcare per family decision. Pt is sitting up in bed, anticipating PO intake and advancing diet today. No uncontrolled s/s reported. Pt is now PCU status and being moved to PCU 6 later today. Multiple family members calling for updates. They may need to identify a family spokesperson. [facility] will remain available and attempt to complete a POLST with pt/family after transfer to PCU.
--- NOTE | 2020-03-16 11:16 | NUR ---
1040 REPORT CALLED TO LY CHATTERJEE AND PT TO BE TRANSFERED TO PCU-6. IV KCL FINISHING VIA CENTRAL LINE. PT IS NOTED TO BE SOMEWHAT RONCHEROUS AFTER PO B.FAST INTAKE. HE WAS FEEDING SELF AND MY NEED GREATER FEEDING RATE CONTROL FEEDER. WILL REPORT. PT REMAINS A/O AND TOLERATING NC AT 4L HUMIDIFIED
--- NOTE | 2020-03-16 19:25 | NUR ---
SUMMARY PT IS A&O X3, ON 4 L O2 VIA NC W/BIPAP PRN. DEEP BREATHING & COUGHING STRONGLY ENC TODAY, PT HAS HAD LARGE AMOUNTS OF CLEAR SPUTUM. EDUCATION PROVIDED. BED MOBILITY ENC, PT/OT CONSULTED, PT C/O C/P THIS EVENING, 3 DOSES OF NITRO WAS GIVEN, PT STATED THE PAIN WAS "BRYAN" RELIEVED", CHARGE NURSE NOTIFIED, NO EKG WAS DONE AT THIS TIME, VS REMAIN STABLE, HR IN NSR. REPORT HAS BEEN GIVEN TO ADAM CHATTERJEE.
--- NOTE | 2020-03-16 19:30 | NUR ---
TR[place]LEN[place] AND BREATH HELD POST SUTURES REMOVED AND VASELINE GAUZE PLACE W/ 4X4 COVER FOR REMOVAL OF RT JUGULAR CENTRAL LINE. PRESSURE HELD 10 MIN AND OCCLUSIVE STRETCH TAPE PLACED. NO ADVERSE EFFECTS OR COMPLICATION.
[2020-03-17 04:16] LABS: BASOPHILS ABSOLUTE AUTO 0.05 K/mm3 (0.00-0.23); BASOPHILS PERCENT AUTO 0 % (0-2); EOSINOPHILS PERCENT AUTO 0 % (0-6); Hemoglobin 13.6 g/dL (13.5-17.5); IMMATURE GRAN ABSOLUTE AUTO 0.17 K/mm3 (0.00-0.10); IMMATURE GRAN PERCENT AUTO 1 % (0-1); LYMPHOCYTES ABSOLUTE AUTO 0.18 K/mm3 (0.84-5.20); LYMPHOCYTES PERCENT AUTO 1 % (21-46); MONOCYTES ABSOLUTE AUTO 1.46 K/mm3 (0.16-1.47); MONOCYTES PERCENT AUTO 7 % (4-13); Mean Corpuscular HGB 28.8 pg (26.0-34.0); Mean Corpuscular HGB Conc 32.4 g/dL (31.5-36.5); Mean Corpuscular Volume 89 fL (80-100); Mean Platelet Volume 9.2 fL (9.1-12.4); NEUTROPHILS ABSOLUTE AUTO 17.79 K/mm3 (1.96-9.15); NEUTROPHILS PERCENT AUTO 91 % (41-73); Platelet Count 298 K/mm3 (150-400); RDW Coefficient Variation 12.6 % (11.7-14.2); RDW Standard Deviation 41.1 fL (35.1-46.3); Red Blood Cell Count 4.72 M/mm3 (4.30-5.90); White Blood Cell Count 19.65 K/mm3 (4.00-11.30)
[2020-03-17 04:33] LABS: Albumin, Blood 2.6 g/dL (3.4-5.0); Anion Gap 6 mmol/L (6-16); Blood Urea Nitrogen 43 mg/dL (8-24); Bun/Creatinine Ratio 71.5 (12.0-20.0); CO2, Blood 30 mmol/L (21-32); Calcium, Blood 8.8 mg/dL (8.5-10.1); Chloride, Blood 111 mmol/L (98-108); Glomerular Filtration Rate >60 (60-); Glucose, Blood 165 mg/dL (70-99); Phosphorus, Blood 2.6 mg/dL (2.5-4.9); Potassium, Blood 3.5 mmol/L (3.5-5.5); Sodium, Blood 147 mmol/L (136-145)
--- NOTE | 2020-03-17 07:24 | NUR ---
SHIFT SUMMARY PT WAS ORIENTED TO PERSON, PLACE, AND TIME T/O SHIFT BECOMING LETHARGIC AT TIMES. PT WAS RESTLESS IN BED MOST OF THE NIGHT. ON BIPAP FOR A BRIEF TIME, PT KEPT PULLING OFF HOSE FROM MASK, PUT BACK ON 3LPM VIA NC WITH O2 SATS IN LOW 90'S. WHEN ON BIPAP PT WAS TACHYPNEIC AT 40-50 BREATHS/MIN. BP WAS ALSO HYPERTENSIVE AT THIS TIME AND PRN METOPROLOL WAS GIVEN, BP DOWN TO 150'S SYSTOLIC FOR REMAINDER OF SHIFT. HR 70-80'S. PT WAS STATING CHEST PAIN IN LEFT LOWER CHEST, PAIN RELIEVED WITH ACETAMINOPHEN AND SLOW BEEP BREATHING. PT ENCOURAGED TO COUGH AND CLEAR LUNGS OF MUCUS, THIS INCREASED O2 SATS WHEN PT WAS STATING SOB. PT HAS SUCTION TO CLEAR MOUTH.
--- NOTE | 2020-03-17 10:40 | NUR ---
AM NOTE PT APPEARS TO BE SLEEPING INTERMITTIENTLY. ALERT AT TIMES, ORIENTED TO PERSON, PLACE, DATE. SPEECH GARBLED AND SLOW TO RESPOND. PT DENIES PAIN, CHEST PAIN, NAUSEA AND DIZZINESS. PT SOB WITH ACTIVITY, TACHYPNIC AT TIMES, BREATHING SLOW AND UNLABORED AT THIS TIME. PT LS DIM AT BASES; ENCOURAGED PT TO COUGH TO CLEAR AIRWAYS. DR MOSHER AT BEDSIDE THIS AM, DISCUSSING LIFEVEST UPON DISCHARGE. VSS. NO OTHER ACUTE CHANGES NOTED. WILL CONTINUE TO MONITOR UNITL REPORT GIVEN TO ONCOMING RN.
--- NOTE | 2020-03-17 11:39 | NUR ---
PT 02 NOT COMING UP I HELPED THE PATIENT OFF THE BEDPAN, AND NOTICED HIS O2 SATURATION WAS NOT COMING UP. I INFORMED THE NURSE, JACINTO.
--- NOTE | 2020-03-17 11:41 | NUR ---
THIS RN CALLED TO PT ROOM BY HAND TUBE WINDER; PT ON 3L O2 VIA NC SPO2 85-86%, TITRATED TO 5L 02 VIA NC WITH SPO2 86-87; PLACED BIPAP AND NOTIFIED RT; DOMI TO ROOM. PT REPORTS ANXIETY, DENIES PAIN, MEDICATED PER EMAR. WILL CONTINUE TO MONITOR.
--- NOTE | 2020-03-17 13:05 | NUR ---
NOTIIFED DR NATION OF PT RESPIRATORY STATUS AND URINE CATHETER OCCULSION. PT PLACED ON BIPAP AND FIO2 TITRATED UP TO 80% FIO2, CURRENRTLY 16 RUP 10 AND FIO2 35%; RESPIRATION AT 30-50'S ON BIPAP; PT LETHARGIC BUT PULLING AT BIPAP TUBING. ATTEMPTED TO FLUSH CATHETER AND IT WOULD NOT FLUSH; NOTIFIED DR PAIZ, NEW ORDERS TO D/C CATHETER AND PRN BLADDER SCAN. WILL CONTINUE TO MONITOR.
--- NOTE | 2020-03-17 14:23 | NUR ---
Review of EMR and visit attempted. Pt sleeping with BPAP on after lunch. No visitors in the room. Pt has had some resp compromise in the past 24 hours. ICU reported that family had initially planned on comfort care when pt was extubated a couple days ago and then pt stabilized somewhat within 24 hours. He has multiple comorbidities of resp failure, CAD, DM, CHF with EF of approx. 30% at this time. Plan to readdress goals of care with pt/family when able.
--- NOTE | 2020-03-17 15:44 | NUR ---
LATE ENTRY [address] NATION OF PT RESP STATUS, CONTINUES ON BIPAP 16 BUR 10 AT 35%FIO2; RESP RATE 30-40'S. LETHARGIC, RESPONDING TO VERBAL STIMULI AND RESPONDING WITH YES/NO ANSWERS. ATTENDS CHANGED POST COOK CATH REMOVAL; FOUL SMELLING, DARK WITH SEDIMENT; NOTIFIED . NEW ORDERS FOR VBG AND UA. WILL CONTINUE TO MONITOR.
[2020-03-17 16:34] LABS: Base Excess Venous 4.2 mmol/L; PCO2 Venous 39.7 mmHg (38-42); PO2 Venous 135 mmHg (38-42); pH Blood Venous 7.46 (7.34-7.37)
--- NOTE | 2020-03-17 17:27 | NUR ---
[facility] visit after called to room by RN. Three visitors arrived stating they had been called in to a family meeting. RN checked with hospitalist and fire sprinkler designer and no family meeting had been arranged. When I asked brother, Shubham, who had planned the meeting with him, he said, "I did". Visitor policy explained and three visitors allowed to stay for "meeting" with pt's permission for discussion and answering family quesions. Pt very fixated on whether his friend in the room had obtained a drivers license. When I attempted to discuss his goals, wishes he would fade and eyes appeared to glass over at times. He is severly dyspnic with any conversation. He appears very weak and frail. Pt seems agreeable to anything family suggests with a nod but I am unsure if he is even hearing or understanding what is being said or asked of him. Ronen's nephew was very fixated on getting him water to drink. I explained he may be on a fluid restriction which family was aware but had "brought his thermos in for him and filled with tap from the room sink" when they arrived. I explained that they needed to let staff/RN monitor and provide fluid intake. Family is of low understanding. They had very poor hygiene and strong odor. His friend smelled strongly of alcohol. They all asked questions or spoke at once frequently. What I did determine from the pt is that if he improves he would like to do rehab to get stronger, including cardiac rehab after a rehab stay for PT/OT. He lives with brother, Shubham, and they have multiple family members who can assist with care if needed. We spoke about life vest at their request and I explained what it was, how it worked, that it was a bridge to implanted ICD, if appropriate, after trial with life vest. Pt could not participate well and did not appear to have any understand- ing or feelings about the life vest or ICD long-term. Pt's step-sister, Lurdes, was the placement secretary for cardiac rehab locally before retiring. The family decided they would have Lurdes call with more questions about the life vest and I encouraged them to do that and to speak with Ronen's Drs about that specifically and what it would entail for him after discharge. I believe if medically stable OT/PT evals would help determine rehab potential and LOF. He was driving and independent at [facility] prior to this cardiac event. ST eval may be helpful in determining level of cognitive function/impairment also. Plan for [facility] to remain available for support to pt/family and to assist with advanced care planning as indicated/requested.
--- NOTE | 2020-03-17 18:15 | NUR ---
BLADDER SCAN 745cc; NOTIIFED DR NATION, NEW ORDERS FOR PRN STRAIGHT CATH FOR BLADDER SCAN >500cc. WILL SEND UA AND CONTINUE TO [facility] FOR REHAB MEDICINE.
--- NOTE | 2020-03-17 18:16 | NUR ---
SHIFT SUMMARY PT MORE AWAKE THIS EVENING; CONTINUES TO ANSWER YES/NO QUESTIONS. PT TRANSITIONED THIS AFTERNOON TO 4L O2 VIA NC, SPO2 >90%, SOB WITH EXERTION. PT DENIES PAIN, NAUSEA, AND DIZZINESS. VSS. FAMILY CAME IN THIS AFTERNOON FOR UP AND VISITED WITH PT; FAMILY MEMBER ATTEMPTED TO GIVE PATIENT THIN LIQUIDS; EDUCATED FAMILY OF NEED FOR THICKENED LIQUIDS TO AVOID ASPIRATION. VSS. NO OTHER ACUTE CHANGES NOTED. WILL CONTINUE TO MONITOR UNTIL REPORT GIVEN TO ONCOMING RN.
[2020-03-17 18:36] LABS: Source, Urine Catheter
[2020-03-17 18:39] LABS: Appearance, Urine Hazy (Clear); Bilirubin, Urine Neg (Neg); Blood, Urine 5+ (Neg); Color, Urine Yellow (P-Yellow); Glucose Qualitative, Urine Neg (Neg); Ketones, Urine Neg (Neg); Leukocyte Esterase, Urine 3+ (Neg); Nitrite, Urine Neg (Neg); Protein, Urine 2+ (Neg); Urobilinogen, Urine 1+ (Normal)
[2020-03-17 18:48] LABS: Bacteria Many /hpf; Red Blood Cells, Urine TNTC /hpf (0-2); Renal Epithelial Few /hpf (0-Rare); Squamous Epithelial Cells Not Seen /hpf (Few)
--- NOTE | 2020-03-17 21:00 | NUR ---
TELETECH YENI MENCHACA CALLED AND NOTIFIED ME PATIENT HAD CONVERTED TO AFIB AT APPROX 2014. HEART RATE UP IN THE 130'S-140'S. WILL CHECK VITALS AND ADMINISTER LOPRESSOR PER EMAR.
--- NOTE | 2020-03-17 23:52 | NUR ---
CALLED AARON. NOTIFIED HER PATIENT CONVERTED TO AFIB AT 2014, COULD NOT FIND A RECORD OF HIM IN AFIB PREVIOUSLY. HEART RATE UP TO 140'S, LOPRESSOR GIVEN AT 2100, HEART RATE HAS SINCE TRENDED UP AND IS NOW AVERAGING 135. RESPIRATORY RATE IN THE 30'S-40'S, PLACED PATIENT ON BIPAP. PATIENT'S COUGH SOUNDS WET AND HAS CRACKLES IN THE BASES BUT HE IS ON LASIX TWICE A DAY. HE HAS HAD GOOD OUTPUT THIS SHIFT WITH SOAKED ATTENDS BUT WE CANNOT MEASURE BECAUSE HE IS INCONTINENT. ORDERS RECEIVED TO CHANGE LOPRESSOR TO LOPRESSOR 5 MG IV Q2H PRN HEART RATE >120. CALL BACK IF HEART RATE DOES NOT RESPOND.
--- NOTE | 2020-03-18 02:31 | NUR ---
CALLED DR. DUMONT. NOTIFIED HIM PATIENT'S HEART RATE AVERAGING IN THE 120'S. REVIEWED LOPRESSOR INJECTIONS GIVEN WELL PATIENT'S DAILY DOSE OF METOPROLOL SUCCINATE. LAST BP 117/75. ORDERS RECEIVED FOR METOPROLOL TARTRATE 25 MG PO X1 NOW AND REPEAT LOPRESSOR 5 MG IV X1 NOW. ORDERS READ BACK AND VERIFIED.
[2020-03-18 05:36] LABS: Albumin, Blood 2.4 g/dL (3.4-5.0); Anion Gap 6 mmol/L (6-16); Blood Urea Nitrogen 45 mg/dL (8-24); Bun/Creatinine Ratio 69.8 (12.0-20.0); CO2, Blood 30 mmol/L (21-32); Calcium, Blood 8.6 mg/dL (8.5-10.1); Chloride, Blood 115 mmol/L (98-108); Creatinine, Blood 0.65 mg/dL (0.60-1.20); Glomerular Filtration Rate >60 (60-); Glucose, Blood 121 mg/dL (70-99); Phosphorus, Blood 2.7 mg/dL (2.5-4.9); Potassium, Blood 3.3 mmol/L (3.5-5.5); Sodium, Blood 151 mmol/L (136-145)
[2020-03-18 05:37] LABS: BASOPHILS ABSOLUTE AUTO 0.03 K/mm3 (0.00-0.23); BASOPHILS PERCENT AUTO 0 % (0-2); EOSINOPHILS PERCENT AUTO 0 % (0-6); Hematocrit 41.6 % (37.0-53.0); Hemoglobin 13.6 g/dL (13.5-17.5); IMMATURE GRAN ABSOLUTE AUTO 0.19 K/mm3 (0.00-0.10); IMMATURE GRAN PERCENT AUTO 1 % (0-1); LYMPHOCYTES PERCENT AUTO 3 % (21-46); MONOCYTES ABSOLUTE AUTO 1.21 K/mm3 (0.16-1.47); MONOCYTES PERCENT AUTO 7 % (4-13); Mean Corpuscular HGB 29.5 pg (26.0-34.0); Mean Corpuscular HGB Conc 32.7 g/dL (31.5-36.5); Mean Corpuscular Volume 90 fL (80-100); Mean Platelet Volume 9.4 fL (9.1-12.4); NEUTROPHILS ABSOLUTE AUTO 16.44 K/mm3 (1.96-9.15); NEUTROPHILS PERCENT AUTO 90 % (41-73); Platelet Count 306 K/mm3 (150-400); RDW Standard Deviation 42.8 fL (35.1-46.3); Red Blood Cell Count 4.61 M/mm3 (4.30-5.90); White Blood Cell Count 18.37 K/mm3 (4.00-11.30)
--- NOTE | 2020-03-18 06:58 | NUR ---
PATIENT'S HEART RATE TRENDED BACK UP TO THE 130'S. BP 127/81. CALLED DR. DUMONT. ORDERS RECEIVED TO GIVE LOPRESSOR 5 MG IV X1 NOW. CHANGE CURRENT METOPROLOL SUCCINATE DOSE FROM METOPROLOL SUCCINATE 25 MG PO DAILY TO METOPROLOL SUCCINATE 50 MG PO DAILY.
--- NOTE | 2020-03-18 07:26 | NUR ---
SHIFT SUMMARY: PATIENT A/OX2-3, HARD OF HEARING. HAS DENIED PAIN THROUGHOUT THE SHIFT. ELEVATED RESPIRATIONS AT TIMES. HAS WORN BIPAP FOR SEVERAL HOURS THIS SHIFT. CONVERTED TO AFIB AT APPROX 2015. ELEVATED HEART RATE, LOPRESSOR GIVEN FOUR TIMES AND METOPROLOL TARTRATE GIVEN X1 WITH HEART RATE GOING DOWN TO 1TEENS-120'S AFTER EACH ADMINISTRATION BUT THEN TRENDS UP TO 130'S. PATIENT WILL RECEIVE INCREASED DOSE OF METOPROLOL SUCCINATE THIS AM. HAS DENIED CHEST PAIN. TAKES MEDS ONE AT A TIME WITH APPLESAUCE. REPOSITIONED Q2H. TEGADERM CHG PLACED TO R NECK PATIENT REMOVED OLD DRESSING. REPORT GIVEN TO ONCOMING RN.
--- NOTE | 2020-03-18 11:20 | NUR ---
AM NOTE PT MORE ALERT TODAY; ORIENTED x2-3. PT WORKING WITH PT/OT/ST. UP IN CHAIR WITH 2 PERSON MAX ASSIST THIS AM. SOB WITH EXERTION, ON 3L O2 VIA NC. RESP RATE 20'S, EVEN AND UNLABORED, SHALLOW AT TIMES. PT DENIES PAIN, CHEST PAIN, NAUSEA, AND DIZZINESS. VSS. NO OTHER ACUTE CHANGES NOTED DURING SHIFT. WILL CONTINUE TO MONITOR.
--- NOTE | 2020-03-18 17:16 | NUR ---
PATIENT REFUSING VS, CBG AND OXYGEN THERAPY. ATTEMPTING TO GET UP ON OWN. MOVED PATIENT TO ROOM CLOSER TO NURSE STATION AND NOTIFIED DR NATION; NEW ORDER FOR ATIVAN 0.5MG IV ONCE. WILL CONTINUE TO MONITOR.
--- NOTE | 2020-03-18 18:50 | NUR ---
SHIFT SUMMARY PT ALERT, ORIENTED x2; PT CONFUSED AND AGGITATED THIS AFTERNOON; WANTING TO GO TO THE BATHROOM BUT PT UNABLE TO WALK AND STATING HE WILL BE GOING TO [facility]. PT TRANSFERED TO [facility] [place] WITH 3 PERSON MAX ASSIST WITH WALKER AND GAIT BELT. PT CONTINUES TO ATTEMPT TO GET OUT OF BED. REFUSING VS, CBG AND OXYGEN THERAPY THIS EVENING, DR NATION NOTIFIED; NEW ORDERS FOR ATIVAN x1. OTHER VSS. MEDICATIONS WITH APPLESAUCE; FOOD PUREED WITH HONEY THICKENED LIQUIDS. NO OTHER ACUTE CHANGES NOTED DURING SHIFT. WILL CONTINUE TO MONITOR UNITL REPORT GIVEN TO ONCOMING RN.
--- NOTE | 2020-03-18 19:38 | NUR ---
PT CONTINUES TO ATTEMPT TO GET OUT OF BED; REFUSING TO ALLOW STAFF TO ASSIST; NEW ORDER PER DR CHAPIS KUNZ.
[2020-03-19 04:14] LABS: BASOPHILS ABSOLUTE AUTO 0.03 K/mm3 (0.00-0.23); BASOPHILS PERCENT AUTO 0 % (0-2); EOSINOPHILS ABSOLUTE AUTO 0.01 K/mm3 (0.00-0.68); EOSINOPHILS PERCENT AUTO 0 % (0-6); Hematocrit 43.9 % (37.0-53.0); Hemoglobin 13.9 g/dL (13.5-17.5); IMMATURE GRAN ABSOLUTE AUTO 0.11 K/mm3 (0.00-0.10); IMMATURE GRAN PERCENT AUTO 1 % (0-1); LYMPHOCYTES PERCENT AUTO 3 % (21-46); MONOCYTES ABSOLUTE AUTO 0.94 K/mm3 (0.16-1.47); MONOCYTES PERCENT AUTO 6 % (4-13); Mean Corpuscular HGB 28.7 pg (26.0-34.0); Mean Corpuscular HGB Conc 31.7 g/dL (31.5-36.5); Mean Corpuscular Volume 91 fL (80-100); Mean Platelet Volume 9.5 fL (9.1-12.4); NEUTROPHILS ABSOLUTE AUTO 15.15 K/mm3 (1.96-9.15); NEUTROPHILS PERCENT AUTO 90 % (41-73); Platelet Count 321 K/mm3 (150-400); RDW Coefficient Variation 13.2 % (11.7-14.2); RDW Standard Deviation 43.8 fL (35.1-46.3); Red Blood Cell Count 4.84 M/mm3 (4.30-5.90); White Blood Cell Count 16.74 K/mm3 (4.00-11.30)
[2020-03-19 04:30] LABS: Albumin, Blood 2.4 g/dL (3.4-5.0); Anion Gap 6 mmol/L (6-16); Blood Urea Nitrogen 49 mg/dL (8-24); Bun/Creatinine Ratio 60.4 (12.0-20.0); CO2, Blood 32 mmol/L (21-32); Calcium, Blood 8.8 mg/dL (8.5-10.1); Chloride, Blood 118 mmol/L (98-108); Creatinine, Blood 0.81 mg/dL (0.60-1.20); Glomerular Filtration Rate >60 (60-); Glucose, Blood 138 mg/dL (70-99); Magnesium, Blood 2.7 mg/dL (1.6-2.4); Phosphorus, Blood 2.4 mg/dL (2.5-4.9); Sodium, Blood 156 mmol/L (136-145)
--- NOTE | 2020-03-19 07:49 | NUR ---
SUMMARY PATIENT ALERT AT BEGINNING OF SHIFT, UNABLE TO ASSESS ORIENTATION BECAUSE PATIENT WOULD ONLY MUMBLE ANSWERS OR JUST NOT ANSWER AT ALL. TOWARDS END ON SHIFT PATIENT SITTING UP, TALKING IN FULL SENTENCES ASKING WHERE HE IS. PATIENT WOULD TRY TO GET UP WITHOUT ASSISTANCE, PATIENT REPEATEDLY REAORIENTED. ASPIRATION RISK, MEDICATIONS GIVEN ONE AT A TIME WITH APPLESAUCE. Q2 HOUR TURNS AND ATTENDS CHANGES, PATIENT NOW ABLE TO STAND AT SIDE OF BED WITH 2 PERSON ASSISTANCE AND USES URINAL, STILL INCONTINENT AT TIMES. PATIENT CONVERTED FROM SR TO AFIB @130s-150s MEDICATED WITH METOPROLOL, SEE EMAR. 02 SATS >95% ON RA. CALL LIGHT IN REACH, BED ALARM ON AND BED IN LOWEST POSITION.
--- NOTE | 2020-03-19 08:13 | NUR ---
ASSUMED CARE FROM NOC SHIFT PT WAS AWAKE AND IN BED ON THE PHONE DURING REPORT. PT HAS REMAINED IN BED; VS STABLE. PT IS CURRENTLY HAVING BREAKFAST WITH HELP FROM COMPUTER CONSOLE OPERATOR, MIGUEL ÁNGELS
--- NOTE | 2020-03-19 10:51 | NUR ---
MORNING UPDATE PT HAS REFUSED ALL MORNING MEDICATIONS. PT STATED "I'M NOT TAKING THOSE" SHENA BOLIVAR EXPLAINED THAT WITHOUT HIS MEDS HE WOULD NOT CONTINUE TO GET BETTER; HIS HEART RATE WILL INCREASE AND HE MAY HAVE CHEST PAIN AT SOME POINT. PT STATED "THAT IS FINE, I'M NOT TAKING THEM!" MORNING MEDICATIONS WERE DOCUMENTED REFUSED AND DR. HILLS WAS MADE AWARE. AT APPROXIMATELY 1030 ON 03/19/20 PT'S HR WAS SUSTAINING ABOVE 140 AND PT IS IN AFIB. SHENA BOLIVAR MADE AN ATTEMPT TO ADMINISTER IV PRN LOPRESSOR; I WAS GOING TO TALK TO THE PT HE GRABBED MY HAND WITH THE MEDICATION AND TRIED TO TAKE THEM. SINCE THERE WAS A SHARP AND HE WOULD NOT LET GO; THE CAP HAD FALLEN OFF THE NEEDLE AND I STABBED THE BED TO PREVENT INJURY TO MYSELF OR THE PT WHO WAS SITTING IN HIS CHAIR AT THE BEDSIDE AT THE TIME. THE PT THEN LET GO AND STATED "YOU'RE IN THE YI, I DON'T WANT THAT STUFF!" OTHER RETAIL STOCK CLERK STEPPED IN TO CALM THE PT AND GIVE HIM NEW FACES THAT WOULD HE WOULD ACCEPT HELP FROM. PT CONTINUED TO REFUSE LOPRESSOR BUT DID REQUEST TO USE THE BSC. DR. HILLS WAS MADE AWARE OF THE INCIDENT AND REQUESTED RN MAKE AN ATTEMPT TO ADMINISTER ATIVAN; AT THIS TIME PT IS STILL REFUSING. PT IS BACK IN BED RESTING WITH BED ALARM ON; HR CONTINUES TO SUSTAIN ABOVE 140 IN AFIB.
--- NOTE | 2020-03-19 12:14 | NUR ---
The pt was agreeable and cooperative to take some medications at this time, and I was also able to give his IV prn metoprolol for rapid heart rate. He is now sitting up in bed, eating lunch with assistance from the WASHER HAND.
--- NOTE | 2020-03-19 13:52 | NUR ---
Spiritual care visit conducted. Patient is sitting up in bed and talkative but his speech is mumbled. He tells me that he is doing ok but then went on to a quest for his truck keys. Patient's family is bedside. They tell me that they are waiting for a meeting with the doctor and have mixed feelings about the gathering. They state that they are looking forward to the clarity the information will bring yet wooried about what the information might be and what options will be presented. I had talked to several family members on the phone prior to this day and so they mentioned it was nice to put a face with the name. I normalize their feelings and provide a calming presence. I will continue to remain available to patient and family.
--- NOTE | 2020-03-19 14:22 | NUR ---
Cancelled life vest per Dr. Boucher. Called [employer] monitoring and order was cancelled.
--- NOTE | 2020-03-19 14:30 | NUR ---
[facility] comfort care note - Family conference with pt's two MPOA and his sister, Lurdes, who the two MPOAs have deferred to. Dr Avendano gave family an update on Ronen's current status and options for care discussed. Family verbalized understanding and attempted to get Ronen's input but he is not able to fully participate or understand but does confirm that he would like to eat and drink freely and [facility]. Family in agreement that they would like to pursue comfort care at this time and hospice care on d/c, with hopes that [facility] can [facility]. I notified and left message for CM, Debbie, to update her on our meeting & the change in status to comfort care per Dr's orders. I request that she contact Lurdes for d/c planning per family request, that Lurdes be the family contact. to place comfort care orders. We discussed with family, no life vest as pt would not be able to follow thru or understand instructions and self care, No further testing, No IV but that PO medications, PO intake would be offered with the hope that pt would consent to taking PO meds for cardiac s/s management. Family verbalized understanding and agreement with that plan for Ronen. When Lurdes asked him if that was what he wanted, he nodded yes, but I am unsure of his understanding. He wanted to make sure his family knew where his car keys were and that they should use his rig if needed. That was his primary concern. Pt was very calm, tired appearing during the meeting. His family being present was definitely a calming measure for him. [facility] to continue to follow for s/s management.
--- NOTE | 2020-03-19 17:55 | NUR ---
SHIFT SUMMARY PT WAS PLACED ON COMFORT CARE THIS AFTERNOON. PT WAS VERY CONFUSED EARILER THIS MORNING; HE WAS HAVING BOUTS OF PARANOIA. PT MAINTAINED HR IN 160s THIS MORNING AND IS IN AFIB; PT REFUSED ALL MORNING MEDS BUT AGREED TO MEDICATIONS DURING THE AFTERNOON AND EVENING. PT WAS ABLE TO VISIT WITH FAMILY THIS AFTERNOON AND DR. HILLS HAD A FAMILY MEETING RESULTING IN THE COMFORT CARE MEDICAL STATUS. PT WAS VERY RESTFUL AFTER FAMILY HAD LEFT. PT DID AGREE TO MORPHINE HE REPORTED SOB AND APPEARED AIR HUNGRY. PT IS CURRENTLY SITTING IN THE CHAIR VISITING WITH STAFF
[2020-03-20 03:46] LABS: BASOPHILS ABSOLUTE AUTO 0.02 K/mm3 (0.00-0.23); BASOPHILS PERCENT AUTO 0 % (0-2); EOSINOPHILS ABSOLUTE AUTO 0.02 K/mm3 (0.00-0.68); EOSINOPHILS PERCENT AUTO 0 % (0-6); Hematocrit 45.7 % (37.0-53.0); Hemoglobin 14.1 g/dL (13.5-17.5); IMMATURE GRAN ABSOLUTE AUTO 0.08 K/mm3 (0.00-0.10); IMMATURE GRAN PERCENT AUTO 1 % (0-1); LYMPHOCYTES ABSOLUTE AUTO 0.69 K/mm3 (0.84-5.20); LYMPHOCYTES PERCENT AUTO 5 % (21-46); MONOCYTES ABSOLUTE AUTO 0.85 K/mm3 (0.16-1.47); MONOCYTES PERCENT AUTO 6 % (4-13); Mean Corpuscular HGB 28.5 pg (26.0-34.0); Mean Corpuscular HGB Conc 30.9 g/dL (31.5-36.5); Mean Corpuscular Volume 93 fL (80-100); Mean Platelet Volume 9.4 fL (9.1-12.4); NEUTROPHILS ABSOLUTE AUTO 13.16 K/mm3 (1.96-9.15); NEUTROPHILS PERCENT AUTO 89 % (41-73); Platelet Count 338 K/mm3 (150-400); RDW Coefficient Variation 13.5 % (11.7-14.2); RDW Standard Deviation 46.1 fL (35.1-46.3); Red Blood Cell Count 4.94 M/mm3 (4.30-5.90); White Blood Cell Count 14.82 K/mm3 (4.00-11.30)
[2020-03-20 04:09] LABS: Albumin, Blood 2.5 g/dL (3.4-5.0); Anion Gap 2 mmol/L (6-16); Blood Urea Nitrogen 66 mg/dL (8-24); Bun/Creatinine Ratio 76.7 (12.0-20.0); CO2, Blood 35 mmol/L (21-32); Calcium, Blood 9.1 mg/dL (8.5-10.1); Chloride, Blood 120 mmol/L (98-108); Creatinine, Blood 0.86 mg/dL (0.60-1.20); Glomerular Filtration Rate >60 (60-); Glucose, Blood 148 mg/dL (70-99); Phosphorus, Blood 3.6 mg/dL (2.5-4.9); Potassium, Blood 3.2 mmol/L (3.5-5.5); Sodium, Blood 157 mmol/L (136-145)
--- NOTE | 2020-03-20 05:17 | NUR ---
SHIFT SUMMARY PATIENT ALERT, CONFUSED, AND FORGETS LIMITATIONS. PATIENT WILL STAND AT SIDE OF BED TO USE URINAL. SLEPT OFF AND ON THROUGHT THE NIGHT. NO COMPLAINTS OF PAIN. COOPERATIVE WITH CARE. REPOSITIONED Q2H. CALL LIGHT IN REACH, BED IN LOW POSITON, CALL LIGHT ON.
--- NOTE | 2020-03-20 08:00 | NUR ---
PT LAYING IN BED, VERY IRRITATED WITH STAFF COMING IN ROOM TO TAKE CARE OF HIM, HE IS SPEAKING WITH CARE MGMT, REFUSING TO SIGN A PAPER HE NEEDS TO, IRRITATED WITH NURSING FOR GETTING HIS V.S., ATE A SMALL AMOUNT OF BREAKFAST AND DID TAKE HIS PO MEDS WITH APPLESAUCE, REFUSED INSULIN, LUNGS ARE CLEAR IN UPPER CHILEL, DIM IN BASES, RESP EVEN AND UNLABORED, WET COUGH NOTED, HRR, TELE IN PLACE RUNNING SR, SEE STRIP, NO EDEMA NOTED, PPP+1, CAP REFILL<3SEC, VS STABLE, AFEBRILE, IV SITE CLEAR AND PATENT, BTX4, ABD FLAT SOFT NONTENDER, INCONT OF URINE ATTENDS IN PLACE BUT WILL GET UP TO BSC, SKIN C/W/D, LUDA FULLER, CALL LIGHT IN REACH.
--- NOTE | 2020-03-20 09:15 | NUR ---
took pt down to dialysis via bed, call light in reach in dialysis unit.
--- NOTE | 2020-03-20 09:45 | NUR ---
Stopped in to check on Ronen this morning. He is awake, looking at his spiral notebook, flipping through the pages. He took a few bites from of his breakfast tray which is in front of him. He denies any symptoms or discomfort at this time. He states "20 people have been in my room today." He has no requests. He looks calm and comfortable at this time. PC will continue to follow for symptom management. Pt is currently on comfort care.
--- NOTE | 2020-03-20 10:30 | NUR ---
pt found on floor, bed alarm did not go off, pelletizer at desk heard him, he was assisted back to bed with several people, he denies any complaints of pain, no visible injuries noted, v.s. stable, he is still not cooperative, he states he was going to the bathroom, bed alarm was reactivated, Dr. Moreno notified. call light in reach, pelletizer will stay close to keep a closer eye on him.
--- NOTE | 2020-03-20 18:47 | NUR ---
pt has been better about staying in bed, but wants a mask, to wear and is refusing to eat with out one. lungs are wet, placed a scopolamine on him. unable to understand he can't eat with a mask on, he does get agitated, and irritable. did eat a bit of dinner, call light in reach.
--- NOTE | 2020-03-20 21:33 | NUR ---
ASSUMED CARE OF PATIENT AT APPROXIMATELY 1900 FROM PAUL Nash RN. PATIENT ALERT AND ORIENTED TO SELF. FOLLOWING DIRECTIONS MOST OF THE TIMES. PATIENT COMFORT CARE. PATIENT IRRITABLE AT TIMES; REFUSED PM PILLS TONIGHT. PATIENT DENIES PAIN AND SHORTNESS OF BREATH. 2 ASSIST OUT OF BED W/ FWW TO BEDSIDE COMMODE; ATTENDS IN PLACE. MEDICAL NO TELE STATUS. PG IRA S/L. PATIENT HAS ST PRECAUTIONS. REPORT TO BE CALLED TO MEDICAL FLOOR RN OF ROOM 363.
--- NOTE | 2020-03-20 21:51 | NUR ---
REPORT CALLED TO [facility] ON MEDICAL FLOOR
--- NOTE | 2020-03-20 22:20 | NUR ---
RECVD REPORT FROM EDUCATIONAL/DEVELOPMENT ASSISTANT LEIDY; PT TRANSFERRED TO ROOM VIA OWN BED. PT ALERT TO SELF; ABLE TO ANSWER QUESTION, SPEECH SLOW AND DIFFICULT TO UNDERSTAND; PT REFUSES MEDICATION, DOES ALLOW THIS RN TO AUSCULTATE HEART. PT ASKS FOR PHONE TO CALL "BROTHER", NO PHONE NUMBER LISTED. THIS RN PROVIDED PT WITH SISTER'S NUMBER. PT REFUSES TO CALL SISTER. THIS RN CONTACTED SISTER LISTED IN RECORDS; REQUESTED SHE CALL PT TO HELP HIM REORIENT TO SITUATION. PT SPEAKING TO SISTER CURRENTLY. WILL CONTINUE TO MONITOR. BED ALARM ON.
--- NOTE | 2020-03-21 00:04 | NUR ---
2345-pt wishes to go to bathroom, offered bed pain, refused adamantly. this RN assisted pt to bathroom. pt had a BM, requested shower chair for shower; this RN offered bed bath assist or warm soapy water to wash while at commode. pt refused adamantly, demanded shower. Three nursing staff member managed pt's shower. This RN attempted to assess pt for pain/anxiety. pt displays mild anxiety, denies pain. This RN offered pt medication per MAR and a snack. pt refused adamantly, stating "I want to wake up in the morning". 2 nursing staff required to assist pt back to bed via wheelchair. pt cooperative for this. 0000-pt asleep in bed, bed alarms/sensors in place, bed rails up
--- NOTE | 2020-03-21 01:23 | NUR ---
0100-PT ATTEMPTS OOB, WHEN NURSING STAFF ENCOURAGED/REQUESTED PT TO GET BACK IN BED, PT REFUSES, STATES "YOU BETTER NOT TOUCH ME", HAS HIT MOLD MAKING PLASTICS SHEETS SUPERVISOR, REFUSES ANY OFFERS OF ASSISTANCE, DEMANDS "A BOTTLE OF SPRITE" HE REFUSES ANY PO INTAKE WE OFFER, BELIEVES THEY ARE "POISON". FORM SETTER SUPERVISOR, SECURITY, THREE NURSING STAFF CALLED, CALLED NOC HOSPITALIST FOR ORDERS.
--- NOTE | 2020-03-21 01:37 | NUR ---
PT ATTEMPTS OOB, WHEN ASSISTED BACK IN BED, KICKS/HITS AT STAFF. IM ATIVAN X 1 ADMINISTERED PER MAR, VEST IN PLACE, BED RAILS UP X 4 PER MD.
--- NOTE | 2020-03-21 02:11 | NUR ---
pt attempting to exit bed; reoriented and repositions in bed; remains confused and resists repositioning and any attempts at nursing care
[2020-03-21 04:44] LABS: BASOPHILS ABSOLUTE AUTO 0.03 K/mm3 (0.00-0.23); BASOPHILS PERCENT AUTO 0 % (0-2); EOSINOPHILS ABSOLUTE AUTO 0.03 K/mm3 (0.00-0.68); EOSINOPHILS PERCENT AUTO 0 % (0-6); Hematocrit 46.1 % (37.0-53.0); IMMATURE GRAN ABSOLUTE AUTO 0.12 K/mm3 (0.00-0.10); IMMATURE GRAN PERCENT AUTO 1 % (0-1); LYMPHOCYTES PERCENT AUTO 5 % (21-46); MONOCYTES ABSOLUTE AUTO 0.94 K/mm3 (0.16-1.47); MONOCYTES PERCENT AUTO 6 % (4-13); Mean Corpuscular HGB 27.9 pg (26.0-34.0); Mean Corpuscular HGB Conc 30.4 g/dL (31.5-36.5); Mean Corpuscular Volume 92 fL (80-100); Mean Platelet Volume 9.9 fL (9.1-12.4); NEUTROPHILS ABSOLUTE AUTO 14.54 K/mm3 (1.96-9.15); NEUTROPHILS PERCENT AUTO 88 % (41-73); Platelet Count 300 K/mm3 (150-400); RDW Coefficient Variation 13.8 % (11.7-14.2); RDW Standard Deviation 46.9 fL (35.1-46.3); Red Blood Cell Count 5.02 M/mm3 (4.30-5.90); White Blood Cell Count 16.46 K/mm3 (4.00-11.30)
[2020-03-21 05:28] LABS: Albumin, Blood 2.5 g/dL (3.4-5.0); Anion Gap 7 mmol/L (6-16); Blood Urea Nitrogen 58 mg/dL (8-24); Bun/Creatinine Ratio 79.1 (12.0-20.0); CO2, Blood 29 mmol/L (21-32); Chloride, Blood 125 mmol/L (98-108); Creatinine, Blood 0.73 mg/dL (0.60-1.20); Glomerular Filtration Rate >60 (60-); Glucose, Blood 179 mg/dL (70-99); Potassium, Blood 3.1 mmol/L (3.5-5.5); Sodium, Blood 161 mmol/L (136-145)
--- NOTE | 2020-03-21 05:33 | NUR ---
Sheng in lab relayed critical Na 161. Hospitalist notified, no orders.
--- NOTE | 2020-03-21 05:34 | NUR ---
shift summary: pt remains confused, paranoid with the belief nursing staff is trying to "poison" him. pt unable to reorient. pt attempts to hit/kick nursing staff. [place] vest in place, restraint documentation completed. offered pt PO intake, refused. offered pt comfort care medication, refused. pt did request and receive a shower this shift.
--- NOTE | 2020-03-21 06:00 | NUR ---
4 NURSING STAFF REQUIRED TO CHANGE LINENS/ATTENDS. DESPITE ORIENTING/REASSURING PT OF STAFF'S INTENTIONS TO ASSIST AND OF PT'S SAFETY, PT KICKS, HITS, SQUEEZE/SCRATCHES/PINCHES STAFF/S HANDS/ARMS. THIS RN OFFERED PT COMFORT CARE MEDS X 3, REFUSED; OFFERED MOUTH MOISTENERS AND ICE CHIPS WHICH WERE THROWN AT NURSE. PT IN JOSE VEST, BED RAILS UP X 4, BED ALARM AND AWARENESS IN PLACE
--- NOTE | 2020-03-21 08:01 | NUR ---
PT IS VERY RESTLESS THIS AM DENIES PAIN, IS SECURE IN A JOSE VEST
[2020-03-21 08:34] LABS: Magnesium, Blood 2.9 mg/dL (1.6-2.4); Phosphorus, Blood 3.2 mg/dL (2.5-4.9)
--- NOTE | 2020-03-21 11:43 | NUR ---
PT ASSISTED TO THE BATHROOM, PT WAS ABLE TO AMBULATE WITH ASSISTANCE INTO THE BATHROOM, HOWEVER, WAS VERY WEAK AND HAD NO STERNGTH RETURNING, THE PT WAS UP IN THE CHAIR FOR ABOUT 1 HR, LOW BP RECORDEED DR. NGUYEN WAS NOTIFIED AND CAME INTO THE ROOM TO ASSESS THE PT, THE PT APPEARED TO BE ASPIRATING ON ALL PO INTAKE, EVEN HONEY THICK LIQUID, THE PT WAS ESCORTED BACK TO BED, CALL LIGHT IN REACH
--- NOTE | 2020-03-21 11:47 | NUR ---
PT IS RESTING IN BED AT THIS TIME APPEARS TO BE COMFORTABLE, BED ALARM HAND TUBE WINDER LIGHT IN REACH, WILL CONTINUE TO MONITOR AND ASSESS FOR CHANGES
--- NOTE | 2020-03-21 12:28 | NUR ---
PT AWAKE FOR LUNCH, ASSISTED FOR LUNCH BY THE BLOCK CHOPPER HAND, UP IN HIGH FOWLERS POSITION, APPEARS COMFORTABLE AT THIS TIME
[2020-03-21 12:31] LABS: Anion Gap 5 mmol/L (6-16); Blood Urea Nitrogen 59 mg/dL (8-24); Bun/Creatinine Ratio 68.4 (12.0-20.0); CO2, Blood 28 mmol/L (21-32); Chloride, Blood 126 mmol/L (98-108); Creatinine, Blood 0.86 mg/dL (0.60-1.20); Glomerular Filtration Rate >60 (60-); Glucose, Blood 239 mg/dL (70-99); Potassium, Blood 3.6 mmol/L (3.5-5.5); Sodium, Blood 159 mmol/L (136-145)
--- NOTE | 2020-03-21 13:39 | NUR ---
PT WAS FOUND UP OUT OF BED SITTING ON THE BENCH, PT HAD A BM, PT WAS ASSISTED BACK TO BED AND CHANGED BY THE RUBBER EXTRUSION MACHINE OPERATOR, PT APPEARS TO BE COMFORTABLE AT THIS TIME, BED ALARM PRODUCE TEAM MEMBER LIGHT IN REACH
--- NOTE | 2020-03-21 14:33 | NUR ---
PT HAD ANOTHER BM, FAMILY IN TO SEE THE PT AT THIS TIME, CALL LIGHT IN REACH, FAMILY IS SIGNING PAPERS PROVIDED FOR MARIELLE ESTRADA
--- NOTE | 2020-03-21 16:01 | NUR ---
PT APPEARS TO BE RESTING COMFORTABLY AT THIS TIME HAS REMAINRD CALM T/O THE DAY
--- NOTE | 2020-03-21 17:10 | NUR ---
PT UP ON THE SIDE OF THE BED NEEDED THE URINAL. PT NOW RESTING BACK IN BED BED ALARM ON, WILL CONTINUE TO MONITOR FOR CHANGES
[2020-03-22 05:00] LABS: Hematocrit 49.5 % (37.0-53.0)
[2020-03-22 05:22] LABS: Albumin, Blood 2.3 g/dL (3.4-5.0); Anion Gap 7 mmol/L (6-16); Blood Urea Nitrogen 57 mg/dL (8-24); Bun/Creatinine Ratio 75.9 (12.0-20.0); CO2, Blood 26 mmol/L (21-32); Calcium, Blood 8.9 mg/dL (8.5-10.1); Chloride, Blood 127 mmol/L (98-108); Creatinine, Blood 0.75 mg/dL (0.60-1.20); Glomerular Filtration Rate >60 (60-); Glucose, Blood 189 mg/dL (70-99); Phosphorus, Blood 2.9 mg/dL (2.5-4.9); Potassium, Blood 3.2 mmol/L (3.5-5.5); Sodium, Blood 160 mmol/L (136-145)
--- NOTE | 2020-03-22 05:39 | NUR ---
SHIFT SUMMARY PT HAS RESTED OFF AND ON. PT ANSWERS MOST OF MY QUESTIONS APPROPRIATELY, BUT HE IS VERY FORGETUL . PT HAS HAD TWO LARGE INCONTIENT VOIDS REQUIRING COMPLETE LINEN CHANGES, AND A BOWEL MOVEMENT. PT HAS ATTEMPTED TO GET OOB A COUPLE OF TIMES THIS SHIFT , BUT HE IS TOO WEAK TO FULLY MAKE IT OUT ON HIS OWN. MOST TIMES WHEN HE IS ATTEMPTING TO EXIT THE BED IT IS WHEN HE HAS TO USE THE BATHROOM AND AT THAT POINT HE HAS ALEADY HAD AN INCONTINENT VOID. BED ALARM REMAINS IN PLACE FOR SAFETY. PT DENIED PAIN T/O SHIFT. YANKER SUCTION AT BEDSIDE, AND SCOPOLAMINE PATCH FOR EXCESS SECRETIONS. NO CALLS OR VISITS FROM FAMILY THIS SHIFT. COMFORT ASSESSED T/O SHIFT. BED IN LOWEST POSITION, CALL LIGHT WITHIN REACH.
--- NOTE | 2020-03-22 08:37 | NUR ---
PT IS AWAKE THIS AM AMBULATED INTO THE BATHROOM, UP IN THE CHAIR AT THIS TIME, HAVING BREAKFAST
--- NOTE | 2020-03-22 11:05 | NUR ---
PT ALERT, HARD TO UNDERSTAND DUE TO WHISPERING FROM A SORE THROAT, PROVIDED GOOD MOUTH CARE VIA SUCTION, NYSTATIN GIVEN FOR THRUSH, PT IS RECIEVING A BED BATH AT THIS TIME
--- NOTE | 2020-03-22 13:56 | NUR ---
PATIENT PASSED PT PASSESD AWAY AT 1325, PATIENTS SISTER WAS CALLED A MESSAGE WAS LEFT, DR. BARRY WAS NOTIFIED WELL THE ENTRY LEVEL MANUFACTURING ENGINEER AND THE CHARGE NURSE
--- NOTE | 2020-03-22 14:16 | NUR ---
PT THIS AFTERNOON, THE PT WAS AWAKE JUST PRIOR TO PASSING, PT HAD A VERY WET COUGH SINCE BREAKFAST THIS AM, PT WAS SUCTIONED FREQUANTLY BY THIS RN, HIMSELF AND ONCE BY THE RT
== END 2020-03-22 13:25 | DRG 246 ==
LOC: ER 21:18 → PCU 21:27 → ICUE 21:27 → ICUW 21:27 → ICUE 22:46 → PCU 03-16 11:11 → MEDS 03-20 22:15
PROVIDERS: Emergency Medicine; Family Medicine; Internal Medicine; Internal Medicine Critical Care Medicine; ADMIT Internal Medicine Cardiovascular Disease
PROC: 027036Z Dilation of Coronary Artery, One Artery with Three Drug-eluting Intraluminal Devices, Percutaneous Approach (ICD-10-PCS; 2020-03-10)
PROC: B2111ZZ Fluoroscopy of Multiple Coronary Arteries using Low Osmolar Contrast (ICD-10-PCS; 2020-03-10)
PROC: 05HM33Z Insertion of Infusion Device into Right Internal Jugular Vein, Percutaneous Approach (ICD-10-PCS; principal; 2020-03-11)
PROC: 3E033XZ Introduction of Vasopressor into Peripheral Vein, Percutaneous Approach (ICD-10-PCS; 2020-03-11)
PROC: 0BH17EZ Insertion of Endotracheal Airway into Trachea, Via Natural or Artificial Opening (ICD-10-PCS; 2020-03-11)
PROC: 5A1945Z Respiratory Ventilation, 24-96 Consecutive Hours (ICD-10-PCS; 2020-03-11)
PROC: 3E02340 Introduction of Influenza Vaccine into Muscle, Percutaneous Approach (ICD-10-PCS; 2020-03-11)
PROC: 5A09357 Assistance with Respiratory Ventilation, Less than 24 Consecutive Hours, Continuous Positive Airway Pressure (ICD-10-PCS; 2020-03-14)
DX: I21.02 ST elevation (STEMI) myocardial infarction involving left anterior descending coronary artery (principal); J96.01 Acute respiratory failure with hypoxia; I50.21 Acute systolic (congestive) heart failure; G92 Toxic encephalopathy; E87.1 Hypo-osmolality and hyponatremia; J98.11 Atelectasis; Z79.84 Long term (current) use of oral hypoglycemic drugs; Z20.822 Contact with and (suspected) exposure to COVID-19; I25.10 Atherosclerotic heart disease of native coronary artery without angina pectoris; E11.65 Type 2 diabetes mellitus with hyperglycemia; R57.0 Cardiogenic shock; Z66 Do not resuscitate; E87.6 Hypokalemia; E83.39 Other disorders of phosphorus metabolism; Z51.5 Encounter for palliative care; I48.0 Paroxysmal atrial fibrillation; Z78.1 Physical restraint status; Z23 Encounter for immunization
CPT/HCPCS: 0241U; 31500; 31720; 36415; 36600; 51701; 51703; 71045; 71275; 76937; 80047; 80048; 80053; 80069; 81001; 82803; 82947; 83605; 83735; 83880; 84100; 84132; 84484; 85014; 85018; 85025; 85347; 85610; 85730; 87015; 87070; 87086; 87116; 87205; 87206; 92526; 92610; 93005; 93010; 93454; 94002; 94003; 94640; 94660; 94667; 94760; 94762; 96374; 97162; 97166; 97530; 97535; 99152; 99153; 99285-25; A9270; C1725; C1751; C1769; C1874; C1887; C1894; C8929; C9113; C9600; C9606; G0008; J0461; J1250; J1644; J1650; J1815; J1940; J2060; J2250; J2704; J3010; J3480; J7030; J7040; J7050; J7060; J7070; Q2038; Q9957; Q9967